=== PATIENT | male | born 1960 | race Caucasian/White ===

== ENCOUNTER 2016-12-13 17:55 | Inpatient (IN) | payer BC, MEDICAID, OTHER ==
[~2016-12-13] VITALS: Ht 174 cm; Wt 109.3 kg
[~2016-12-13 17:55] MED LIST: ASPI81TA31 PO; ATOR80TA PO; CITA20TA19 PO; CLON1TAB PO; CYCL-289 PO; METO-304 PO; RANI300T7 PO; TOPI100T11 PO
[2016-12-13 18:31] LABS: BASOPHILS # (AUTO) 0.1 K/uL (0.0-8.0); BASOPHILS % (AUTO) 0.7 % (0.0-2.0); EOSINOPHILS # (AUTO) 0.1 K/uL (0.0-0.7); EOSINOPHILS % (AUTO) 0.6 % (0.0-7.0); HEMATOCRIT 49.6 % (36.7-47.1); LYMPHOCYTES # (AUTO) 4.6 K/uL (20.0-40.0); LYMPHOCYTES % (AUTO) 29.3 % (20.5-51.5); MEAN CORPUSCULAR HEMOGLOBIN 31.7 uug (23.8-33.4); MEAN CORPUSCULAR HGB CONC 34 g/dL (32.5-36.3); MEAN CORPUSCULAR VOLUME 92.4 fL (73.0-96.2); MONOCYTES # (AUTO) 1.2 K/uL (2.0-10.0); MONOCYTES % (AUTO) 7.7 % (0.0-11.0); NEUTROPHILS # (AUTO) 9.7 K/uL (1.8-8.9); NEUTROPHILS % (AUTO) 61.7 % (38.5-71.5); PLATELET COUNT (AUTO) 223 K/uL (152-348); RED BLOOD CELL COUNT(AUTO) 5.37 MIL/uL (4.06-5.63); RED CELL DISTRIBUTION WIDTH 12.8 % (12.1-16.2); WHITE BLOOD COUNT (AUTO) 15.7 K/uL (3.6-10.2)
[2016-12-13 18:33] LABS: CALCIUM 9.3 mg/dL (8.5-10.1); CREATININE 1.3 mg/dL (0.6-1.3); POTASSIUM 3.8 mmol/L (3.5-5.1)
[2016-12-13] MEDS ORDERED: ESCI20TA PO (18:38)
[2016-12-13] MEDS ORDERED: DEPAKOTE PO (18:38)
[2016-12-13 18:52] LABS: BAND % (MANUAL) 2 % (0-10); LYMPHOCYTES % (MANUAL) 28 % (20-40); MONOCYTES % (MANUAL) 7 % (2-10); NEUTROPHILS % (MANUAL) 63 % (42-75); PLATELET ESTIMATE ADEQUATE
[2016-12-13] MEDS ORDERED: MORPHINE SULFATE 4 MG/1 ML DISP.SYRIN IV ONE (20:15)
[2016-12-13] MEDS ORDERED: IV NORMAL SALINE 1000 ML BAG IV ONE (20:15)
[2016-12-13] MEDS ORDERED: ONDANSETRON IV *ER 4 MG/2 ML VIAL IV ONE (20:15)
[2016-12-13] MEDS ORDERED: ONDANSETRON 4 MG/2 ML VIAL ONE (20:28)
[2016-12-13] MEDS ORDERED: MORPHINE SULFATE 4 MG/1 ML DISP.SYRIN ONE (20:28)
[2016-12-13] MEDS ORDERED: IV NORMAL SALINE 250 ML IV ONE (20:36)
[2016-12-13] MEDS ORDERED: NORMAL SALINE FLUSH 10 ML DISP.SYRIN ONE (20:36)
[2016-12-13] MEDS ORDERED: IOHEXOL 350 100 ML INFUS..BTL ONE (20:36)
--- NOTE | 2016-12-13 21:00 | NUR ---
Call placed to Dr Coughlin, call back pending.
--- NOTE | 2016-12-13 21:36 | NUR ---
Pt. admitted to telemetry , under care of Dr. Coughlin. Dx: Chest Pain Belongs List completed.
[2016-12-13 22:11] VITALS: BP 132/92
--- NOTE | 2016-12-13 22:30 | NUR ---
PLACE A CALL TO DR. DIEHL TO OBTAIN ORDERS, DR. VIVIENNE NICHOLAS TOUR PRODUCTION SUPERVISOR AWAITING FOR RESPONSE.
--- NOTE | 2016-12-13 23:00 | NUR ---
VIVIENNE JOHANSEN RETURNED THE CALL WITH ORDERS. ORDER NOTED AND CARRIED OUT.
[2016-12-13] MEDS: MORPHINE SULFATE 2 MG/1 ML DISP.SYRIN IV PRN (23:40)
[2016-12-13] MEDS ORDERED: MORPHINE SULFATE 2 MG/1 ML DISP.SYRIN ONE (23:49)
[2016-12-14] MEDS ORDERED: ZOLPIDEM 5 MG TABLET PO PRN
[2016-12-14] MEDS ORDERED: CYCLOBENZAPRINE HCL 10 MG TABLET PO PRN
[2016-12-14] MEDS ORDERED: ACETAMINOPHEN 325 MG TABLET PO PRN
[2016-12-14 04:00] VITALS: BP 114/71
--- NOTE | 2016-12-14 04:31 | NUR ---
PATIENT AWAKE PAIN LEVEL AT 4 AT THIS TIME, GIVEN OXYGEN 2LITER NC FOR ASSIST, OXYGEN SAT 94% AT ROOM AIR, PATIENT OXYGEN SAT 96% AT 2LITERS, NO SOB NO CHEST CONT TO MONITOR.
--- NOTE | 2016-12-14 06:29 | NUR ---
PATIENT AWAKE VERBALLY RESPONSIVE, NO SOB NO CHEST PAIN NOTED, CONT TO MONITOR.
[2016-12-14 06:59] LABS: BASOPHILS # (AUTO) 0.1 K/uL (0.0-8.0); BASOPHILS % (AUTO) 0.7 % (0.0-2.0); EOSINOPHILS # (AUTO) 0.2 K/uL (0.0-0.7); EOSINOPHILS % (AUTO) 1.4 % (0.0-7.0); HEMATOCRIT 46.7 % (36.7-47.1); HEMOGLOBIN 16.2 g/dL (12.5-16.3); LYMPHOCYTES # (AUTO) 3.5 K/uL (20.0-40.0); MEAN CORPUSCULAR HGB CONC 35 g/dL (32.5-36.3); MEAN CORPUSCULAR VOLUME 92.6 fL (73.0-96.2); MONOCYTES % (AUTO) 9.5 % (0.0-11.0); NEUTROPHILS # (AUTO) 6.3 K/uL (1.8-8.9); NEUTROPHILS % (AUTO) 56.4 % (38.5-71.5); PLATELET COUNT (AUTO) 196 K/uL (152-348); RED BLOOD CELL COUNT(AUTO) 5.04 MIL/uL (4.06-5.63); RED CELL DISTRIBUTION WIDTH 13.2 % (12.1-16.2); WHITE BLOOD COUNT (AUTO) 11.1 K/uL (3.6-10.2)
[2016-12-14 07:27] LABS: ALBUMIN 3.2 g/dL (3.4-5.0); BILIRUBIN,TOTAL 0.6 mg/dL (0.2-1.0); CALCIUM 8.5 mg/dL (8.5-10.1); CREATININE 1.1 mg/dL (0.6-1.3); POTASSIUM 3.9 mmol/L (3.5-5.1); TOTAL PROTEIN, SERUM 6.4 g/dL (6.4-8.2)
[2016-12-14] MEDS: ASPIRIN EC 81 MG TABLET.DR PO SCH (08:17)
[2016-12-14] MEDS: DIVALPROEX 250 MG TABLET.DR PO SCH ×3 (08:17→17:59)
[2016-12-14] MEDS: MORPHINE SULFATE 2 MG/1 ML DISP.SYRIN IV PRN ×2 (08:19→20:39)
[2016-12-14] MEDS ORDERED: METOPROLOL TARTRATE 50 MG TABLET PO SCH (09:00)
[2016-12-14] MEDS ORDERED: ESCITALOPRAM OXALATE 10 MG TABLET NG SCH (09:00)
[2016-12-14] MEDS ORDERED: CYCLOBENZAPRINE HCL 10 MG TABLET PO SCH (09:00)
[2016-12-14] MEDS: ESCITALOPRAM OXALATE 10 MG TABLET PO SCH (09:00)
[2016-12-14] MEDS: FAMOTIDINE 20 MG TABLET PO SCH (09:45)
[2016-12-14] MEDS: METOPROLOL SUCCINATE XL 50 MG TAB.SR.24H PO SCH (09:46)
[2016-12-14] MEDS ORDERED: REGADENOSON 0.4 MG/5 ML PREFILLED SYR IV ONE (11:45)
[2016-12-14 12:00] VITALS: BP 135/92
[2016-12-14 16:00] VITALS: BP 121/89
--- NOTE | 2016-12-14 18:59 | NUR ---
PATIENT BEEN IN BED RESTING. NO S/S OF DISTRESS NOTED. C/O OF CHEST PAIN DURING THE MORNING. MEDICATED ORDERED. AT THE BEDSIDE. STRESS TEST WAS DONE TODAY DURING THE DAY. IV STILL INTACT. SAFETY AND COMFORT PROVIDED BY STAFF. WILL CONTINUE MONITORING.
--- NOTE | 2016-12-14 19:22 | NUR ---
Report received from MARY Jones
--- NOTE | 2016-12-14 19:40 | NUR ---
Awake during initial rounds, presenting CP in scale of 5/10 , non radiating. Refused pain meds offered at this time. Continue to monitor.
[2016-12-14 20:16] VITALS: BP 119/73
[2016-12-14] MEDS ORDERED: ATORVASTATIN 40 MG TABLET PO SCH (21:00)
[2016-12-14] MEDS ORDERED: CLONAZEPAM 1 MG TABLET PO SCH (21:00)
[2016-12-15 00:06] VITALS: BP 120/75
[2016-12-15 04:00] VITALS: BP 124/79
--- NOTE | 2016-12-15 06:34 | NUR ---
Medicated once for c/o CP with relief. No further complaint presented. Slept well. All needs attended and met. No significant event reported all night. VSS. Continue care as planned.
--- NOTE | 2016-12-15 06:52 | NUR ---
Report given to AM nurse.
--- NOTE | 2016-12-15 07:15 | NUR ---
REPORT RECEIVED.PT REMAINS AWAKE,ALERT,ORIENTED.DENIES CHEST PAIN.SR ON MONITOR.ON ROOM AIR,TOLERATED WELL.NO SOB NOTED.WILL CONTINUE TO MONITOR.
[2016-12-15 08:00] VITALS: BP 139/99
[2016-12-15] MEDS: ESCITALOPRAM OXALATE 10 MG TABLET PO SCH (09:36)
[2016-12-15 09:37] VITALS: BP 139/99
[2016-12-15] MEDS: ASPIRIN EC 81 MG TABLET.DR PO SCH (09:37)
[2016-12-15] MEDS: FAMOTIDINE 20 MG TABLET PO SCH (09:37)
[2016-12-15] MEDS: METOPROLOL SUCCINATE XL 50 MG TAB.SR.24H PO SCH (09:37)
[2016-12-15] MEDS: DIVALPROEX 250 MG TABLET.DR PO SCH (09:37)
--- NOTE | 2016-12-15 10:00 | NUR ---
PT WAS DISCHARGE HOME IN STABLE CONDITION.DISCHARGE INSTRUCTION GIVEN TO PT.PT ACCOMPANY BY HIS .TRANSFERED TO PRIVATE CAR BY WHEELCHAIR.
== END 2016-12-15 10:30 | disposition home or self-care (01) | DRG 207 ==
LOC: ER 17:56 → TELE 21:19
PROVIDERS: ADMIT Internal Medicine; ATTEND Internal Medicine
DX: I31.9 Disease of pericardium, unspecified (principal); I10 Essential (primary) hypertension; I25.2 Old myocardial infarction; E78.5 Hyperlipidemia, unspecified; I25.10 Atherosclerotic heart disease of native coronary artery without angina pectoris; F31.9 Bipolar disorder, unspecified; Z98.61 Coronary angioplasty status; F41.9 Anxiety disorder, unspecified
CPT/HCPCS: 36415; 70030-TC; 71010; 78452; 85025; 85651; 85730; 86140; 93005; 93307; A4663; A9502; J2270; J2405; J2785; J3490; J7050; Q9967

== ENCOUNTER 2017-07-30 12:13 | Inpatient (IN) | payer MEDICAID ==
[~2017-07-30] VITALS: Ht 175.3 cm; Wt 113.4 kg
[~2017-07-30 12:13] MED LIST changes: -CITA20TA19 PO; +DEPAKOTE PO; +ESCI20TA PO; -TOPI100T11 PO
[2017-07-30] MEDS ORDERED: BREX2TAB PO (12:28)
[2017-07-30] MEDS ORDERED: HYDR-3026 PO (12:28)
[2017-07-30 13:03] LABS: BASOPHILS % (AUTO) 0.5 % (0.0-2.0); EOSINOPHILS # (AUTO) 0.2 K/uL (0.0-0.7); EOSINOPHILS % (AUTO) 1.9 % (0.0-7.0); HEMATOCRIT 43.4 % (36.7-47.1); HEMOGLOBIN 14.7 g/dL (12.5-16.3); LYMPHOCYTES # (AUTO) 2.7 K/uL (20.0-40.0); LYMPHOCYTES % (AUTO) 31.4 % (20.5-51.5); MEAN CORPUSCULAR HEMOGLOBIN 31.4 uug (23.8-33.4); MEAN CORPUSCULAR HGB CONC 34 g/dL (32.5-36.3); MEAN CORPUSCULAR VOLUME 92.5 fL (73.0-96.2); MONOCYTES # (AUTO) 0.7 K/uL (2.0-10.0); MONOCYTES % (AUTO) 8.4 % (0.0-11.0); NEUTROPHILS # (AUTO) 4.9 K/uL (1.8-8.9); NEUTROPHILS % (AUTO) 57.8 % (38.5-71.5); PLATELET COUNT (AUTO) 217 K/uL (152-348); RED BLOOD CELL COUNT(AUTO) 4.69 MIL/uL (4.06-5.63); WHITE BLOOD COUNT (AUTO) 8.5 K/uL (3.6-10.2)
[2017-07-30 13:07] LABS: CARBON DIOXIDE 26 mmol/L (21-32); CHLORIDE 107 mmol/L (98-107); CREATININE 1.3 mg/dL (0.6-1.3); GLUCOSE 90 mg/dL (74-106); POTASSIUM 4.6 mmol/L (3.5-5.1); UREA NITROGEN, BLOOD 23 mg/dL (7-18)
--- NOTE | 2017-07-30 13:08 | NUR ---
PT BACK FROM CT, RESTING COMFORTABLY
[2017-07-30 13:12] LABS: ETHANOL < 3 MG/DL (0-0)
[2017-07-30 13:21] LABS: ALANINE AMINOTRANSFERASE 33 U/L (16-63); ALKALINE PHOSPHATASE 82 U/L (50-136); ASPARTATE AMINOTRANSFERASE 26 U/L (15-37); BILIRUBIN,DIRECT 0.1 mg/dL (0.0-0.2); BILIRUBIN,TOTAL 0.4 mg/dL (0.2-1.0); TOTAL PROTEIN, SERUM 6.5 g/dL (6.4-8.2)
[2017-07-30 13:22] LABS: ACETAMINOPHEN < 2.0 ug/mL (10-30)
--- NOTE | 2017-07-30 13:47 | NUR ---
Multiple calls placed to pt's pmd office ( Dr. Santos Gaspar [phone] ), placed on hold for long periods of time multiple times. Office staff stated " Dr. Gaspar is not on staff there ".
--- NOTE | 2017-07-30 14:00 | NUR ---
Per pt to be admitted to tele, Mike Antunez DNP accepting.
--- NOTE | 2017-07-30 14:38 | NUR ---
Pt trans to tele floor, NAD noted.
--- NOTE | 2017-07-30 14:45 | NUR ---
PT ARRIVED CONFUSED, AOX1, STABLE VITAL SIGNS, ON TELE, 20 GAUGE LEFT AC INTACT. PT IS CALM, COOPERATIVE ADMISSION COMPLETED WITH THE HELP OF . PT IS TOO CONFUSED TO ANSWER PASSED HISTORY QUESTIONS FOR ADMISSION. VITALS STABLE AND SKIN INTACT.
[2017-07-30] MEDS ORDERED: hydrOXYzine HCL 25 MG TABLET PO SCH (16:00)
[2017-07-30] MEDS ORDERED: ACETAMINOPHEN 325 MG TABLET PO PRN (16:15)
[2017-07-30] MEDS ORDERED: Z GUARD REMEDY PASTE 57 GM TUBE TOP PRN (16:15)
[2017-07-30] MEDS ORDERED: ONDANSETRON 4 MG/2 ML VIAL IV PRN (16:15)
[2017-07-30] MEDS ORDERED: ENOXAPARIN SODIUM 40 MG/0.4 ML DISP.SYRIN SQ SCH ×2 (16:15→21:00)
--- NOTE | 2017-07-30 17:50 | NUR ---
PT PULLED OUT IV AND IS CONFUSED THINKS HE IS LEAVING. PT RE-ORIENTED TO TIME AND PLACE. PT IS ANXIOUS 10/10, PT TAUGHT BREATHING EXERCISES AND DISTRACTION WITH TV. PT ANXIETY IS 2/10.
[2017-07-30 17:56] VITALS: BP 140/84
[2017-07-30 19:03] LABS: *BILIRUBIN,URIN NEGATIVE (NEGATIVE); *BLOOD, URINE Trace-lysed (NEGATIVE); *CLARITY,URINE CLEAR (CLEAR); *COLOR,URINE YELLOW (YELLOW); *KETONES,URINE NEGATIVE (NEGATIVE); *PROTEIN,URINE NEGATIVE (NEGATIVE); *UROBILINOGEN,URINE 0.2 E.U./dl (NORMAL); LEUKOCYTE ESTERASE ,URINE NEGATIVE (NEGATIVE); NITRITE, URINE NEGATIVE (NEGATIVE); PH,URINE 6.5 (5.0-8.0); UGLUCOSE NEGATIVE (NEGATIVE)
[2017-07-30 19:12] LABS: *AMPHETAMINE, URINE NEGATIVE (NEGATIVE); *BARBITURATE, URINE NEGATIVE (NEGATIVE); *CANNABINOID, URINE POSITIVE (NEGATIVE); *COCCAINE, URINE NEGATIVE (NEGATIVE); *OPIATE, URINE NEGATIVE (NEGATIVE); *PHENCYCLIDINE SCREEN,URINE NEGATIVE (NEGATIVE); BACTERIA,URINE FEW /HPF (NONE SEEN); SQUAMOUS EPITHELIAL CELL,UR FEW /HPF (NONE SEEN); WBC,URINE 0-3 /HPF (0-3)
[2017-07-30 20:00] VITALS: BP 117/63
--- NOTE | 2017-07-30 20:00 | NUR ---
RECEIVED PATIENT AWAKE IN BED WITH FAMILY AT BEDSIDE. PATIENT IS A/O X4 BUT FORGETFUL. PATIENT KEEPS TAKING OFF HEART MONITOR. NEEDS FREQUENT REDIRECTION, BUT WHEN ON TELE, SR. DENIES ANY PAIN OR DISCOMFORT. NO RESP. DISTRESS NOTED. CALL LIGHT IN REACH. ALL NEEDS ATTENDED. WILL CONTINUE TO MONITOR.
[2017-07-30] MEDS ORDERED: ATORVASTATIN 40 MG TABLET PO SCH (21:00)
[2017-07-31] VITALS: BP 133/80
--- NOTE | 2017-07-31 02:00 | NUR ---
PATIENT PULLED OFF TELE MONITOR AND IS REFUSING TO WEAR AT THIS TIME. SON IS PRESENT AT BEDSIDE. WILL CONTINUE TO MONITOR.
[2017-07-31 04:00] VITALS: BP 113/54
--- NOTE | 2017-07-31 06:00 | NUR ---
PATIENT ASLEEP IN BED WITH SON AT BEDSIDE. VSS. ON TELE SR. NO S/S OF PAIN OR DISCOMFORT. NO RESP. DISTRESS NOTED. CALL LIGHT IN REACH. BED ALARM ON. ALL NEEDS ATTENDED. WILL CONTINUE TO MONITOR.
--- NOTE | 2017-07-31 06:28 | NUR ---
PATIENT ASLEEP IN BED. SON AT BEDSIDE. IVF INFUSING WELL TO RIGHT HAND #20 GAUGE. VSS. ON TELE. CALL LIGHT IN REACH. ALL NEEDS ATTENDED. WILL CONTINUE TO MONITOR AND ASSESS.
[2017-07-31 06:53] LABS: BASOPHILS % (AUTO) 0.3 % (0.0-2.0); EOSINOPHILS # (AUTO) 0.2 K/uL (0.0-0.7); EOSINOPHILS % (AUTO) 3.4 % (0.0-7.0); HEMATOCRIT 44.1 % (36.7-47.1); HEMOGLOBIN 14.9 g/dL (12.5-16.3); LYMPHOCYTES # (AUTO) 2.2 K/uL (20.0-40.0); LYMPHOCYTES % (AUTO) 35.8 % (20.5-51.5); MEAN CORPUSCULAR HEMOGLOBIN 31.3 uug (23.8-33.4); MEAN CORPUSCULAR HGB CONC 34 g/dL (32.5-36.3); MEAN CORPUSCULAR VOLUME 92.8 fL (73.0-96.2); MONOCYTES # (AUTO) 0.7 K/uL (2.0-10.0); MONOCYTES % (AUTO) 10.7 % (0.0-11.0); NEUTROPHILS # (AUTO) 3.1 K/uL (1.8-8.9); NEUTROPHILS % (AUTO) 49.8 % (38.5-71.5); PLATELET COUNT (AUTO) 210 K/uL (152-348); RED BLOOD CELL COUNT(AUTO) 4.75 MIL/uL (4.06-5.63); WHITE BLOOD COUNT (AUTO) 6.2 K/uL (3.6-10.2)
[2017-07-31] MEDS ORDERED: IV NS 1000 ML 1,000 ML IV PRN (07:00)
[2017-07-31 07:08] LABS: THYROID STIMULATING HORMONE 2.601 mIU/mL (0.358-3.740)
[2017-07-31 07:11] LABS: BILIRUBIN,TOTAL 0.5 mg/dL (0.2-1.0); CREATININE 1.2 mg/dL (0.6-1.3); MAGNESIUM 1.8 mg/dL (1.8-2.4); PHOSPHOROUS 3.1 mg/dL (2.5-4.9); POTASSIUM 4.1 mmol/L (3.5-5.1); TOTAL PROTEIN, SERUM 6.2 g/dL (6.4-8.2)
[2017-07-31] MEDS ORDERED: ESCITALOPRAM OXALATE 10 MG TABLET PO SCH (09:00)
[2017-07-31] MEDS ORDERED: METOPROLOL SUCCINATE XL 50 MG TAB.SR.24H PO SCH (09:00)
[2017-07-31] MEDS ORDERED: ASPIRIN 81 MG TAB.CHEW PO SCH (09:00)
[2017-07-31 11:42] VITALS: BP 116/88
[2017-07-31] MEDS ORDERED: CLON1TAB PO (11:52)
[2017-07-31] MEDS ORDERED: CYAN-10 IM (11:52)
[2017-07-31] MEDS ORDERED: CYANOCOBALAMIN 1000 MCG/ML VIAL IM ONE (12:00)
--- NOTE | 2017-07-31 14:55 | NUR ---
discharge instructions given to patient and . reforestation worker involved re: set up on VIT B12 IM shot. Pt is in no acute distress. Prescription given to and patient. Pt more awake alert and oriented and from wifes perspective pt's orientation is back to his baseline. Pharmacist spoke and educated and patient re new medication. Pt is to f/u with PMD within 1 week. IV d/c. No sob upon discharge.
[2017-08-01 11:48] LABS: HEPATITIS B SURFACE AG Negative (Negative)
[2017-08-02 07:06] LABS: HEPATITIS Be ANTIGEN Negative (Negative)
[2017-08-04 17:08] LABS: *VITAMIN D 25-OH VIT D 18 ng/mL (.); *VITAMIN D 25-OH, D2 <1.0 ng/mL (.); *VITAMIN D 25-OH, D3 17 ng/mL (.)
== END 2017-07-31 14:47 | disposition home or self-care (01) | DRG 52 ==
LOC: ER 12:13 → TELE 15:23 → MED 07-31 11:27
PROVIDERS: ADMIT Nurse Practitioner Acute Care; ATTEND Nurse Practitioner Acute Care
DX: G92 Toxic encephalopathy (principal); N17.0 Acute kidney failure with tubular necrosis; E86.0 Dehydration; T50.905A Adverse effect of unspecified drugs, medicaments and biological substances, initial encounter; Y92.009 Unspecified place in unspecified non-institutional (private) residence as the place of occurrence of the external cause; I25.2 Old myocardial infarction; I25.10 Atherosclerotic heart disease of native coronary artery without angina pectoris; Z95.5 Presence of coronary angioplasty implant and graft; Z82.49 Family history of ischemic heart disease and other diseases of the circulatory system; E78.5 Hyperlipidemia, unspecified; E66.01 Morbid (severe) obesity due to excess calories; F32.9 Major depressive disorder, single episode, unspecified; F41.9 Anxiety disorder, unspecified; F23 Brief psychotic disorder; I10 Essential (primary) hypertension; F12.90 Cannabis use, unspecified, uncomplicated; E53.8 Deficiency of other specified B group vitamins; Z79.899 Other long term (current) drug therapy; Z79.82 Long term (current) use of aspirin; Z68.36 Body mass index [BMI] 36.0-36.9, adult
CPT/HCPCS: 36415; 70030-TC; 70450; 71010; 80307; 82533; 83605; 83735; 84100; 84443; 85025; 86592; 86803; 87040; 87340; 87350; 87806; 93005; A4663; G0480; G0480-TC; J1650; J3420; J7030

== ENCOUNTER 2018-12-24 16:19 | Emergency (ER) | payer MEDICAID ==
[~2018-12-24] VITALS: Ht 175.3 cm; Wt 95.3 kg
[~2018-12-24 16:19] MED LIST changes: +CYAN-10 IM; -CYCL-289 PO; -DEPAKOTE PO; -METO-304 PO; +METO-357 PO
--- NOTE | 2018-12-24 16:32 | NUR ---
PT WAS EVALUATED BY DR SANTOS. PT IS IN ROOM #2A.
[2018-12-24 16:44] LABS: BASOPHILS % (AUTO) 0.5 % (0.0-2.0); EOSINOPHILS # (AUTO) 0.2 K/uL (0.0-0.7); EOSINOPHILS % (AUTO) 1.9 % (0.0-7.0); HEMATOCRIT 46.6 % (36.7-47.1); LYMPHOCYTES # (AUTO) 4.1 K/uL (20.0-40.0); LYMPHOCYTES % (AUTO) 43.5 % (20.5-51.5); MEAN CORPUSCULAR HGB CONC 34 g/dL (32.5-36.3); MONOCYTES # (AUTO) 0.8 K/uL (2.0-10.0); MONOCYTES % (AUTO) 8.7 % (0.0-11.0); NEUTROPHILS # (AUTO) 4.3 K/uL (1.8-8.9); NEUTROPHILS % (AUTO) 45.4 % (38.5-71.5); PLATELET COUNT (AUTO) 218 K/uL (152-348); RED BLOOD CELL COUNT(AUTO) 5.01 MIL/uL (4.06-5.63); WHITE BLOOD COUNT (AUTO) 9.5 K/uL (3.6-10.2)
[2018-12-24] MEDS ORDERED: LORAZEPAM 2 MG/1 ML VIAL ONE (16:46)
[2018-12-24] MEDS ORDERED: KETOROLAC TROMETHAMINE 30 MG INJ ONE (16:46)
[2018-12-24] MEDS: LORAZEPAM 2 MG/1 ML VIAL IV ONE (16:46)
[2018-12-24] MEDS: KETOROLAC TROMETHAMINE 30 MG INJ IVP ONE (16:47)
[2018-12-24] MEDS ORDERED: RAMI2.5C2 PO (16:50)
[2018-12-24] MEDS ORDERED: CLON1TAB PO (16:50)
[2018-12-24] MEDS ORDERED: NITR0.4T SL (16:50)
[2018-12-24] MEDS ORDERED: FLEXERIL PO (16:50)
[2018-12-24] MEDS ORDERED: HYDR25CA PO (16:50)
[2018-12-24] MEDS ORDERED: CELE-85 PO (16:50)
[2018-12-24] MEDS ORDERED: LAMO200T PO (16:50)
[2018-12-24 16:52] LABS: CREATININE 1.3 mg/dL (0.6-1.3); POTASSIUM 4.3 mmol/L (3.5-5.1)
[2018-12-24 16:58] LABS: BILIRUBIN,DIRECT 0.1 mg/dL (0.0-0.2); BILIRUBIN,TOTAL 0.3 mg/dL (0.2-1.0); TOTAL PROTEIN, SERUM 6.9 g/dL (6.4-8.2)
[2018-12-24] MEDS: HYDROMORPHONE 1 MG/1 ML DISP.SYRIN IV ONE (18:14)
[2018-12-24] MEDS ORDERED: IOHEXOL 350 100 ML INFUS..BTL ONE (18:15)
[2018-12-24] MEDS ORDERED: NORMAL SALINE FLUSH 10 ML DISP.SYRIN ONE (18:15)
[2018-12-24] MEDS ORDERED: SWABABLE VALVE TRANSFER SET EA MC ONE (18:15)
[2018-12-24] MEDS ORDERED: HYDROMORPHONE 1 MG/1 ML DISP.SYRIN ONE (18:15)
[2018-12-24] MEDS ORDERED: IV NORMAL SALINE 250 ML IV ONE (18:15)
--- NOTE | 2018-12-24 19:12 | NUR ---
Checked on patient, patient in bed on phone. Patient has pain, but tolerable. NAD, VSS.
--- NOTE | 2018-12-24 20:31 | NUR ---
Patient discharged to home in stable conditon. Written and verbal after care instructions given. Patient verbalizes understanding of instructions. Patient ambulated with steady gait.
[2018-12-24 20:33] VITALS: BP 120/70
== END 2018-12-24 20:34 | disposition home or self-care (01) ==
LOC: ER 16:21
DX: R07.89 Other chest pain (principal); R11.2 Nausea with vomiting, unspecified; I25.2 Old myocardial infarction; Z79.899 Other long term (current) drug therapy; Z79.82 Long term (current) use of aspirin
CPT/HCPCS: 36415; 71045; 71275; 80048; 80076; 84484 ×2; 85025; 85379; 93005 ×2; 96374; 96375; 99284; J1170; J1885; J2060; Q9967; 70030-TC; A4663; J3490; J7050

== ENCOUNTER 2020-03-02 12:59 | Emergency (ER) | payer MEDICAID ==
[~2020-03-02] VITALS: Ht 175.3 cm; Wt 90.7 kg
[~2020-03-02 12:59] MED LIST changes: +CELE-85 PO; -CYAN-10 IM; +FLEXERIL PO; +HYDR25CA PO; +LAMO200T10 PO; +NITR0.4T SL; +RAMI2.5C2 PO
--- NOTE | 2020-03-02 13:14 | NUR ---
DR Ruiz at the bedside for MSE.
[2020-03-02] MEDS ORDERED: ONDANSETRON 4 MG/2 ML VIAL ONE (13:23)
[2020-03-02] MEDS ORDERED: MORPHINE SULFATE 4 MG/1 ML DISP.SYRIN ONE (13:23)
[2020-03-02] MEDS ORDERED: ONDANSETRON 4 MG/2 ML VIAL IV ONE (13:30)
[2020-03-02] MEDS ORDERED: MORPHINE SULFATE 2 MG/1 ML DISP.SYRIN IV ONE (13:30)
[2020-03-02 13:36] LABS: BASOPHILS # (AUTO) 0.1 K/uL (0.0-8.0); BASOPHILS % (AUTO) 0.5 % (0.0-2.0); EOSINOPHILS # (AUTO) 0.2 K/uL (0.0-0.7); EOSINOPHILS % (AUTO) 1.3 % (0.0-7.0); HEMATOCRIT 48.9 % (36.7-47.1); HEMOGLOBIN 16.7 g/dL (12.5-16.3); LYMPHOCYTES # (AUTO) 2.7 K/uL (20.0-40.0); LYMPHOCYTES % (AUTO) 20.8 % (20.5-51.5); MEAN CORPUSCULAR HEMOGLOBIN 33.5 uug (23.8-33.4); MEAN CORPUSCULAR HGB CONC 34 g/dL (32.5-36.3); MEAN CORPUSCULAR VOLUME 98.3 fL (73.0-96.2); MONOCYTES # (AUTO) 0.9 K/uL (2.0-10.0); NEUTROPHILS # (AUTO) 9.2 K/uL (1.8-8.9); NEUTROPHILS % (AUTO) 70.4 % (38.5-71.5); PLATELET COUNT (AUTO) 226 K/uL (152-348); RED BLOOD CELL COUNT(AUTO) 4.98 MIL/uL (4.06-5.63); WHITE BLOOD COUNT (AUTO) 13.1 K/uL (3.6-10.2)
[2020-03-02 13:40] LABS: CREATININE 1.4 mg/dL (0.6-1.3); POTASSIUM 5.1 mmol/L (3.5-5.1)
[2020-03-02 13:45] LABS: BILIRUBIN,DIRECT 0.1 mg/dL (0.0-0.2); BILIRUBIN,TOTAL 0.4 mg/dL (0.2-1.0); TOTAL PROTEIN, SERUM 7.2 g/dL (6.4-8.2)
[2020-03-02 14:03] LABS: *BLOOD, URINE 3+ (NEGATIVE); *CLARITY,URINE TURBID (CLEAR); *COLOR,URINE RED (YELLOW); *KETONES,URINE 1+ (NEGATIVE); LEUKOCYTE ESTERASE ,URINE 3+ (NEGATIVE); NITRITE, URINE NEGATIVE (NEGATIVE); PH,URINE 8.5 (5.0-8.0); UGLUCOSE TRACE (NEGATIVE)
[2020-03-02 14:06] LABS: *BILIRUBIN,URIN 3+ (NEGATIVE)
[2020-03-02] MEDS ORDERED: PHENAZOPYRIDINE HCL 100 MG TABLET PO ONE (14:45)
[2020-03-02] MEDS ORDERED: CEFTRIAXONE 1 G in IV DEXTROSE 5% 50 ML IV ONE (14:45)
[2020-03-02] MEDS ORDERED: CEFTRIAXONE 1 G VIAL ONE (14:49)
[2020-03-02] MEDS ORDERED: PHENAZOPYRIDINE HCL 100 MG TABLET ONE (14:49)
[2020-03-02 15:21] VITALS: BP 117/82
--- NOTE | 2020-03-02 15:27 | NUR ---
Patient discharged to home in stable condition. Written and verbal after care instructions given. Patient verbalizes understanding of instructions. Stressed follow up or return to ER for worsening s/s.
[2020-03-02 15:30] LABS: RBC,URINE TNTC /HPF (0-3)
[2020-03-02 15:31] LABS: BACTERIA,URINE FEW /HPF (NONE SEEN); SQUAMOUS EPITHELIAL CELL,UR FEW /HPF (NONE SEEN); WBC,URINE TNTC /HPF (0-3)
== END 2020-03-02 15:28 | disposition home or self-care (01) ==
LOC: ER 12:59
DX: N30.01 Acute cystitis with hematuria (principal); M84.48XA Pathological fracture, other site, initial encounter for fracture; K76.89 Other specified diseases of liver; I25.2 Old myocardial infarction; Z95.5 Presence of coronary angioplasty implant and graft; Z87.442 Personal history of urinary calculi; Z79.82 Long term (current) use of aspirin
CPT/HCPCS: 36415; 74176; 80048; 80076; 81001; 85025; 85730; 87086; 96365; 96375; 99284; J0696; J2270; J2405; J3490

== ENCOUNTER 2020-03-21 15:38 | Emergency (ER) | payer MEDICAID ==
[~2020-03-21] VITALS: Ht 175.3 cm; Wt 90.7 kg
--- NOTE | 2020-03-21 15:53 | NUR ---
DR Escobedo seen and examined the pt.
[2020-03-21] MEDS ORDERED: LIDOCAINE VISCUS 2% 15 ML UDC MM ONE (16:00)
[2020-03-21] MEDS ORDERED: ONDANSETRON 4 MG/2 ML VIAL IV ONE ×2 (16:00→16:45)
[2020-03-21] MEDS ORDERED: FAMOTIDINE. 20 MG/2 ML VIAL IV ONE ×2 (16:00→16:11)
[2020-03-21] MEDS ORDERED: MAG HYDROX/AL HYDROX/SIMETH 30 ML LIQUID UDC PO ONE (16:00)
[2020-03-21] MEDS ORDERED: LIDOCAINE VISCUS 2% 15 ML UDC ONE (16:11)
[2020-03-21] MEDS ORDERED: MAG HYDROX/AL HYDROX/SIMETH 30 ML LIQUID UDC ONE (16:11)
[2020-03-21] MEDS ORDERED: ONDANSETRON 4 MG/2 ML VIAL ONE ×2 (16:11→16:44)
[2020-03-21 16:14] LABS: BASOPHILS # (AUTO) 0.1 K/uL (0.0-8.0); BASOPHILS % (AUTO) 0.6 % (0.0-2.0); EOSINOPHILS # (AUTO) 0.1 K/uL (0.0-0.7); EOSINOPHILS % (AUTO) 1.6 % (0.0-7.0); HEMATOCRIT 45.5 % (36.7-47.1); HEMOGLOBIN 15.3 g/dL (12.5-16.3); LYMPHOCYTES # (AUTO) 2.4 K/uL (20.0-40.0); LYMPHOCYTES % (AUTO) 28.8 % (20.5-51.5); MEAN CORPUSCULAR HGB CONC 34 g/dL (32.5-36.3); MONOCYTES # (AUTO) 0.7 K/uL (2.0-10.0); MONOCYTES % (AUTO) 8.1 % (0.0-11.0); NEUTROPHILS # (AUTO) 5.1 K/uL (1.8-8.9); NEUTROPHILS % (AUTO) 60.9 % (38.5-71.5); PLATELET COUNT (AUTO) 252 K/uL (152-348); RED BLOOD CELL COUNT(AUTO) 4.64 MIL/uL (4.06-5.63); WHITE BLOOD COUNT (AUTO) 8.4 K/uL (3.6-10.2)
[2020-03-21 16:22] LABS: CREATININE 1.3 mg/dL (0.6-1.3); POTASSIUM 4.2 mmol/L (3.5-5.1)
[2020-03-21 16:27] LABS: BILIRUBIN,DIRECT 0.1 mg/dL (0.0-0.2); BILIRUBIN,TOTAL 0.4 mg/dL (0.2-1.0)
[2020-03-21] MEDS ORDERED: IV NORMAL SALINE 500 ML BAG IV ONE (16:30)
--- NOTE | 2020-03-21 17:22 | NUR ---
Pt back from CT, resting in bed.
[2020-03-21] MEDS ORDERED: SUCRALFATE 1 G/10 ML LIQUID UDC PO STA (17:31)
[2020-03-21] MEDS ORDERED: SUCRALFATE 1 G/10 ML LIQUID UDC ONE (17:55)
[2020-03-21 17:57] VITALS: BP 110/77
== END 2020-03-21 17:59 | disposition home or self-care (01) ==
LOC: ER 15:38
DX: K29.70 Gastritis, unspecified, without bleeding (principal); I25.2 Old myocardial infarction; Z95.5 Presence of coronary angioplasty implant and graft; G89.29 Other chronic pain; M54.9 Dorsalgia, unspecified; Z79.82 Long term (current) use of aspirin; Z79.899 Other long term (current) drug therapy
CPT/HCPCS: 36415; 71045; 74176; 76700; 80048; 80076; 83690; 84484; 85025; 93005; 96361; 96374; 96375; 96376; 99285; J2405 ×2; J3490; 70030-TC; A4663; J7030

== ENCOUNTER 2021-01-06 11:37 | Emergency (ER) | payer BC, MEDICAID ==
[~2021-01-06] VITALS: Ht 175.3 cm; Wt 90.7 kg
[~2021-01-06 11:37] MED LIST changes: -RAMI2.5C2 PO; +RAMI2.5C55 PO
[2021-01-06] MEDS ORDERED: LAMO200T2 PO (11:48)
[2021-01-06] MEDS ORDERED: KETOROLAC TROMETHAMINE 30 MG INJ ONE (12:40)
[2021-01-06] MEDS ORDERED: KETOROLAC TROMETHAMINE 30 MG INJ IM ONE (12:45)
[2021-01-06] MEDS ORDERED: HYDR-4209 PO (12:57)
[2021-01-06] MEDS ORDERED: IBUP-1958 PO (12:57)
== END 2021-01-06 13:09 | disposition home or self-care (01) ==
LOC: ER 11:38
DX: S62.305A Unspecified fracture of fourth metacarpal bone, left hand, initial encounter for closed fracture (principal); S20.211A Contusion of right front wall of thorax, initial encounter; W01.0XXA Fall on same level from slipping, tripping and stumbling without subsequent striking against object, initial encounter; Y93.E9 Activity, other interior property and clothing maintenance; Y92.014 Private driveway to single-family (private) house as the place of occurrence of the external cause; Y99.8 Other external cause status; S00.81XA Abrasion of other part of head, initial encounter
CPT/HCPCS: 29125; 71101; 73110; 73130; 96372; 99284; J1885; A4663

== ENCOUNTER 2021-05-28 19:30 | Emergency (ER) | payer BC, OTHER ==
[~2021-05-28] VITALS: Ht 172.7 cm; Wt 83.9 kg
[~2021-05-28 19:30] MED LIST changes: -CELE-85 PO; +HYDR-4209 PO; -HYDR25CA PO; +IBUP-1958 PO; +LAMO200T2 PO; -RANI300T7 PO
--- NOTE | 2021-05-28 19:52 | NUR ---
Dr. Moreno at bedside for MSE.
--- NOTE | 2021-05-28 19:55 | NUR ---
Xray at bedside.
[2021-05-28] MEDS ORDERED: OXYCODONE/APAP 5-325 MG TABLET PO ONE (20:00)
[2021-05-28] MEDS ORDERED: OXYCODONE/APAP 5-325 MG TABLET ONE (20:04)
[2021-05-28] MEDS ORDERED: OXYC-128 PO (20:49)
[2021-05-28 20:54] VITALS: BP 163/93
--- NOTE | 2021-05-28 20:54 | NUR ---
Patient discharged to home in stable condition. Written and verbal after care instructions given. Patient verbalizes understanding of instructions. Stressed follow up or return to ER for worsening s/s. Patient out of ER with steady gait, no acute signs of distress, VSS, all belongings taken.
== END 2021-05-28 20:54 | disposition home or self-care (01) ==
LOC: ER 19:31
DX: S46.912A Strain of unspecified muscle, fascia and tendon at shoulder and upper arm level, left arm, initial encounter (principal); W01.0XXA Fall on same level from slipping, tripping and stumbling without subsequent striking against object, initial encounter; Y92.89 Other specified places as the place of occurrence of the external cause; I25.2 Old myocardial infarction; Z95.5 Presence of coronary angioplasty implant and graft; Z96.641 Presence of right artificial hip joint; R03.0 Elevated blood-pressure reading, without diagnosis of hypertension
CPT/HCPCS: 73030; A4663

== ENCOUNTER 2022-01-18 21:43 | Emergency (ER) | payer BC, MEDICAID ==
[~2022-01-18 21:43] MED LIST changes: +OXYC-128 PO
--- NOTE | 2022-01-18 22:10 | NUR ---
Patient was called to be triaged but was not present in the waiting room or outside of ER.
--- NOTE | 2022-01-18 22:54 | NUR ---
Patient was called to be triaged but was not present in the waiting room or outside of ER. PATIENT WAS NOT TRIAGED OR SEEN BY ERMD.
== END 2022-01-18 22:55 | disposition left against medical advice (07) ==
LOC: ER 22:13
DX: Z53.21 Procedure and treatment not carried out due to patient leaving prior to being seen by health care provider (principal)

== ENCOUNTER 2022-04-01 21:25 | Emergency (ER) | payer BC, OTHER ==
[~2022-04-01] VITALS: Ht 175.3 cm; Wt 83.9 kg
[2022-04-01] MEDS ORDERED: PROCHLORPERAZINE EDISYLATE 10 MG/2 ML VIAL ONE (21:59)
[2022-04-01] MEDS ORDERED: PROCHLORPERAZINE EDISYLATE 10 MG/2 ML VIAL IV ONE (22:00)
[2022-04-01] MEDS ORDERED: IV NORMAL SALINE 1000 ML BAG IV ONE (22:00)
[2022-04-01 22:08] LABS: HEMATOCRIT 49.4 % (36.7-47.1); MEAN CORPUSCULAR HEMOGLOBIN 32.3 uug (23.8-33.4); PLATELET COUNT (AUTO) 283 K/uL (152-348)
[2022-04-01 22:16] LABS: CARBON DIOXIDE 23 mmol/L (21-32); CHLORIDE 102 mmol/L (98-107); CREATININE 1.5 mg/dL (0.6-1.3); GLUCOSE 111 mg/dL (74-106); POTASSIUM 4.3 mmol/L (3.5-5.1); UREA NITROGEN, BLOOD 19 mg/dL (7-18)
[2022-04-01 22:33] LABS: ALANINE AMINOTRANSFERASE 19 U/L (16-63); ALKALINE PHOSPHATASE 87 U/L (50-136); ASPARTATE AMINOTRANSFERASE 20 U/L (15-37); BILIRUBIN,DIRECT 0.2 mg/dL (0.0-0.2); BILIRUBIN,TOTAL 0.5 mg/dL (0.2-1.0); LIPASE 71 U/L (73-393); TOTAL PROTEIN, SERUM 7.9 g/dL (6.4-8.2)
[2022-04-01] MEDS ORDERED: IV NS 1000 ML 1,000 ML IV ONE (22:45)
[2022-04-01] MEDS ORDERED: MAGNESIUM SULFATE/D5W 300 ML ONE (23:07)
[2022-04-01] MEDS: MAGNESIUM SULFATE/D5W 100 ML IV SCH ×2 (23:10→23:54)
[2022-04-01] MEDS ORDERED: OXYC-128 PO (23:12)
[2022-04-01] MEDS ORDERED: OMEP20CA15 PO (23:12)
[2022-04-01] MEDS ORDERED: PROC10TA29 PO (23:12)
[2022-04-01] MEDS ORDERED: METR500T PO (23:12)
[2022-04-01] MEDS ORDERED: TETR-66 PO (23:12)
[2022-04-01] MEDS ORDERED: BISM262T27 PO (23:12)
[2022-04-01] MEDS ORDERED: HYDROMORPHONE 1 MG/1 ML DISP.SYRIN ONE (23:23)
[2022-04-01] MEDS ORDERED: HYDROMORPHONE 1 MG/1 ML DISP.SYRIN IV ONE (23:30)
[2022-04-02] MEDS: MAGNESIUM SULFATE/D5W 100 ML IV SCH (00:29)
--- NOTE | 2022-04-02 00:30 | NUR ---
Patient states "I feel alot better now."
[2022-04-02 00:37] LABS: *BILIRUBIN,URIN 1+ (NEGATIVE); *BLOOD, URINE 2+ (NEGATIVE); *CLARITY,URINE CLEAR (CLEAR); *COLOR,URINE YELLOW (YELLOW); *KETONES,URINE 3+ (NEGATIVE); *UROBILINOGEN,URINE 0.2 E.U./dl (NORMAL); LEUKOCYTE ESTERASE ,URINE NEGATIVE (NEGATIVE); NITRITE, URINE NEGATIVE (NEGATIVE); PH,URINE 6.5 (5.0-8.0); UGLUCOSE NEGATIVE (NEGATIVE)
[2022-04-02 01:02] LABS: BACTERIA,URINE NONE SEEN /HPF (NONE SEEN); RBC,URINE TNTC /HPF (0-3); SQUAMOUS EPITHELIAL CELL,UR MODERATE /HPF (NONE SEEN)
--- NOTE | 2022-04-02 01:08 | NUR ---
IV removed. Catheter intact and site benign. Pressure and 4x4 gauze applied to site. No bleeding noted.
[2022-04-02 01:12] VITALS: BP 142/77
--- NOTE | 2022-04-02 01:12 | NUR ---
Patient discharged to home in stable condition with taking patient home. Written and verbal after care instructions given. Patient verbalizes understanding of instructions. Stressed follow up or return to ER for worsening s/s.
== END 2022-04-02 01:13 | disposition home or self-care (01) ==
LOC: ER 21:30
DX: K29.70 Gastritis, unspecified, without bleeding (principal); E83.42 Hypomagnesemia; I25.2 Old myocardial infarction; Z96.641 Presence of right artificial hip joint; Z95.5 Presence of coronary angioplasty implant and graft; Z79.82 Long term (current) use of aspirin; Z79.899 Other long term (current) drug therapy; G93.40 Encephalopathy, unspecified
CPT/HCPCS: 99284; 96365; 96375; 96361; 80076; 80048; 81001; 83690; 83735; 85025; 84484; 36415 ×2; 93005; 83605 ×2; 86677 ×2; J3475; J0780; J1170; J7040 ×2; A4663

== ENCOUNTER 2022-04-25 16:01 | Emergency (ER) | payer BC, OTHER ==
[~2022-04-25] VITALS: Ht 175.3 cm; Wt 83.9 kg
[~2022-04-25 16:01] MED LIST changes: +BISM262T27 PO; +METR500T PO; +OMEP20CA15 PO; +PROC10TA29 PO; +TETR-66 PO
[2022-04-25] MEDS ORDERED: FAMOTIDINE 20 MG TABLET ONE (16:29)
[2022-04-25] MEDS ORDERED: HALOPERIDOL LACTATE 5 MG/1 ML VIAL ONE (16:29)
[2022-04-25] MEDS ORDERED: MAG HYDROX/AL HYDROX/SIMETH 30 ML LIQUID UDC ONE (16:29)
[2022-04-25] MEDS ORDERED: ONDANSETRON 4 MG/2 ML VIAL ONE (16:29)
[2022-04-25] MEDS ORDERED: ONDANSETRON 4 MG/2 ML VIAL IV ONE (16:30)
[2022-04-25] MEDS ORDERED: FAMOTIDINE 20 MG TABLET PO ONE (16:30)
[2022-04-25] MEDS ORDERED: MAG HYDROX/AL HYDROX/SIMETH 30 ML LIQUID UDC PO ONE (16:30)
[2022-04-25] MEDS ORDERED: IV NORMAL SALINE 500 ML BAG IV ONE ×2 (16:30→18:30)
[2022-04-25] MEDS ORDERED: HALOPERIDOL LACTATE 5 MG/1 ML VIAL IV ONE (16:30)
--- NOTE | 2022-04-25 16:32 | NUR ---
Patient came in c/o chest pain. 12 lead EKG done immediately. Placed on a monitor.
--- NOTE | 2022-04-25 16:43 | NUR ---
Patient states he feels "much better" now. Family at bedside.
[2022-04-25] MEDS ORDERED: METOCLOPRAMIDE HCL 10 MG/2 ML VIAL ONE (16:59)
[2022-04-25 17:00] LABS: HEMATOCRIT 28.8 % (36.7-47.1); MEAN CORPUSCULAR HEMOGLOBIN 31.7 uug (23.8-33.4); MEAN CORPUSCULAR VOLUME 95.9 fL (73.0-96.2); PLATELET COUNT (AUTO) 528 K/uL (152-348)
[2022-04-25] MEDS ORDERED: LORAZEPAM 2 MG/1 ML VIAL IV ONE (17:00)
[2022-04-25] MEDS ORDERED: LORAZEPAM 2 MG/1 ML VIAL ONE (17:00)
[2022-04-25] MEDS ORDERED: METOCLOPRAMIDE HCL 10 MG/2 ML VIAL IV ONE (17:00)
[2022-04-25 17:24] LABS: CREATININE 1.1 mg/dL (0.6-1.3); POTASSIUM 3.3 mmol/L (3.5-5.1)
[2022-04-25 17:37] LABS: BILIRUBIN,TOTAL 0.4 mg/dL (0.2-1.0); TOTAL PROTEIN, SERUM 6.7 g/dL (6.4-8.2)
[2022-04-25] MEDS ORDERED: diphenhydrAMINE 50 MG/1 ML VIAL ONE (17:39)
[2022-04-25] MEDS ORDERED: OXYCODONE/APAP 5-325 MG TABLET ONE (17:39)
[2022-04-25] MEDS ORDERED: PANTOPRAZOLE SODIUM 40 MG VIAL ONE (17:39)
[2022-04-25] MEDS ORDERED: PROCHLORPERAZINE EDISYLATE 10 MG/2 ML VIAL ONE (17:40)
[2022-04-25] MEDS ORDERED: PROCHLORPERAZINE EDISYLATE 10 MG/2 ML VIAL IV ONE (17:45)
[2022-04-25] MEDS ORDERED: diphenhydrAMINE 50 MG/1 ML VIAL IV ONE (17:45)
[2022-04-25] MEDS ORDERED: OXYCODONE/APAP 5-325 MG TABLET PO ONE (17:45)
[2022-04-25] MEDS ORDERED: PANTOPRAZOLE SODIUM IV 40 MG in IV DEXTROSE 5% 100 ML IV ONE (17:45)
[2022-04-25 17:51] LABS: HEMATOCRIT 30.9 % (36.7-47.1); MEAN CORPUSCULAR HEMOGLOBIN 31.7 uug (23.8-33.4); MEAN CORPUSCULAR VOLUME 95.7 fL (73.0-96.2); PLATELET COUNT (AUTO) 558 K/uL (152-348)
[2022-04-25] MEDS ORDERED: METO-295 PO (18:30)
--- NOTE | 2022-04-25 18:55 | NUR ---
AMBULATED TO BR AND WAS ABLE TO VOID URINE. STATES HE WANTS TO GO HOME AFTER IV FLUID BAG IS IN BECAUSE HE FEELS BETTER, AND IS ABLE TO DRINK APPLE JUICE WITHOUT NAUSEA NOW
--- NOTE | 2022-04-25 19:01 | NUR ---
HAND OFF REPORT GIVEN TO LORRI HERNANDEZ
[2022-04-25 19:17] VITALS: BP 130/71
== END 2022-04-25 19:18 | disposition home or self-care (01) ==
LOC: ER 16:03
DX: R07.9 Chest pain, unspecified (principal); R10.9 Unspecified abdominal pain; R11.10 Vomiting, unspecified; D72.829 Elevated white blood cell count, unspecified; K21.9 Gastro-esophageal reflux disease without esophagitis; Z96.641 Presence of right artificial hip joint; Z87.440 Personal history of urinary (tract) infections; Z79.82 Long term (current) use of aspirin; Z79.899 Other long term (current) drug therapy; F32.A Depression, unspecified; I25.2 Old myocardial infarction; Z95.5 Presence of coronary angioplasty implant and graft; S42.302D Unspecified fracture of shaft of humerus, left arm, subsequent encounter for fracture with routine healing; X58.XXXD Exposure to other specified factors, subsequent encounter; Z87.11 Personal history of peptic ulcer disease; F41.9 Anxiety disorder, unspecified
CPT/HCPCS: 99285; 96375; 74176; 96374; 71045; 80053; 83880; 83690; 85025 ×2; 84484 ×2; 36415; J1200; J1630; J2060; J2765; J2405; C9113 ×2; J0780; J7040 ×2; A4663

== ENCOUNTER 2022-05-26 20:31 | Inpatient (IN) | payer BC, OTHER ==
[~2022-05-26] VITALS: Ht 175.3 cm; Wt 83.9 kg
[~2022-05-26 20:31] MED LIST changes: -HYDR-4209 PO; +METO-295 PO; -TETR-66 PO
--- NOTE | 2022-05-26 20:45 | NUR ---
Dr. Upton at pt bedside. Jeny/Romeo
[2022-05-26] MEDS ORDERED: IV NORMAL SALINE 1000 ML BAG IV ONE ×2 (21:00→23:00)
[2022-05-26] MEDS ORDERED: PIPERACILLIN SODIUM/TAZOBACTAM 3.375 G in IV DEXTROSE 5% 50 ML IV ONE (21:00)
[2022-05-26] MEDS ORDERED: VANCOMYCIN IV 1,000 MG in IV DEXTROSE 5% 250 ML IV ONE (21:00)
[2022-05-26] MEDS ORDERED: LIDOCAINE 2% (GLYDO= UROJET) 10 ML JELLY MM ONE ×2 (21:11→21:15)
[2022-05-26 21:25] LABS: HEMATOCRIT 25.4 % (36.7-47.1); MEAN CORPUSCULAR VOLUME 87.2 fL (73.0-96.2); PLATELET COUNT (AUTO) 449 K/uL (152-348)
[2022-05-26 21:27] LABS: CARBON DIOXIDE 29 mmol/L (21-32); CHLORIDE 99 mmol/L (98-107); CREATININE 1.2 mg/dL (0.6-1.3); GLUCOSE 104 mg/dL (74-106); POTASSIUM 3.6 mmol/L (3.5-5.1); UREA NITROGEN, BLOOD 19 mg/dL (7-18)
[2022-05-26] MEDS ORDERED: PIPERACILLIN/TAZOBACTAM/D5W 50 ML IV ONE (21:30)
[2022-05-26 21:37] LABS: ETHANOL < 3 MG/DL (0-0)
[2022-05-26 21:39] LABS: THYROID STIMULATING HORMONE 2.157 mIU/mL (0.358-3.740)
[2022-05-26 21:41] LABS: ALANINE AMINOTRANSFERASE 10 U/L (16-63); ALKALINE PHOSPHATASE 89 U/L (50-136); ASPARTATE AMINOTRANSFERASE 7 U/L (15-37); BILIRUBIN,DIRECT < 0.1 mg/dL (0.0-0.2); BILIRUBIN,TOTAL 0.2 mg/dL (0.2-1.0); TOTAL PROTEIN, SERUM 6.9 g/dL (6.4-8.2)
[2022-05-26 21:47] LABS: ACETAMINOPHEN < 2.0 ug/mL (10-30)
[2022-05-26 21:48] LABS: MAGNESIUM 1.7 mg/dL (1.8-2.4); PHOSPHOROUS 3.8 mg/dL (2.5-4.9)
[2022-05-26 22:38] LABS: *BILIRUBIN,URIN NEGATIVE (NEGATIVE); *BLOOD, URINE 1+ (NEGATIVE); *CLARITY,URINE CLEAR (CLEAR); *COLOR,URINE YELLOW (YELLOW); *KETONES,URINE NEGATIVE (NEGATIVE); *UROBILINOGEN,URINE 0.2 E.U./dl (NORMAL); LEUKOCYTE ESTERASE ,URINE NEGATIVE (NEGATIVE); NITRITE, URINE NEGATIVE (NEGATIVE); UGLUCOSE NEGATIVE (NEGATIVE)
--- NOTE | 2022-05-26 22:45 | NUR ---
Unable to succesfully insert IV after multiple attempts. made aware. Scheduled midline insertion with warehouse general laborer. Karly
[2022-05-26 22:48] LABS: *AMPHETAMINE, URINE NEGATIVE (NEGATIVE); *CANNABINOID, URINE POSITIVE (NEGATIVE); *COCCAINE, URINE NEGATIVE (NEGATIVE); *OPIATE, URINE NEGATIVE (NEGATIVE); *PHENCYCLIDINE SCREEN,URINE NEGATIVE (NEGATIVE)
--- NOTE | 2022-05-26 22:50 | NUR ---
Soft Cervical collar removed. Karly
[2022-05-26] MEDS: MAGNESIUM SULFATE/D5W 100 ML IV SCH (23:00)
[2022-05-26 23:12] LABS: *OCCULT BLOOD STOOL NEGATIVE (NEGATIVE)
--- NOTE | 2022-05-26 23:20 | NUR ---
Patient pass swallow eval
[2022-05-26] MEDS ORDERED: CEFTRIAXONE 1 G VIAL IM ONE (23:30)
[2022-05-26] MEDS ORDERED: SULFAMETH/TRIMETH 800/160 MG TABLET PO ONE (23:30)
[2022-05-26] MEDS ORDERED: CEFTRIAXONE 1 G VIAL ONE (23:32)
[2022-05-26] MEDS ORDERED: LIDOCAINE HCL 1% 20 ML VIAL ONE (23:32)
[2022-05-26] MEDS ORDERED: SULFAMETH/TRIMETH 800/160 MG TABLET ONE (23:33)
--- NOTE | 2022-05-27 00:21 | NUR ---
SUPERVISOR BLOOMING MILL emptied out 1000 cc urine. Jeny/Romeo
--- NOTE | 2022-05-27 00:30 | NUR ---
Called [facility] to page Anny Jerry NP.
--- NOTE | 2022-05-27 01:06 | NUR ---
D/C sanchez, patient tolerated procedure well. Unflated cyril. Jeny/Romeo
--- NOTE | 2022-05-27 01:19 | NUR ---
Dr. Upton on panel call with Sincere Valencia DNP.
[2022-05-27] MEDS ORDERED: REMEDY ESSENTIAL ZINC PASTE 113 GM TP PRN (01:30)
[2022-05-27] MEDS ORDERED: ONDANSETRON 4 MG/2 ML VIAL IV PRN (01:30)
[2022-05-27] MEDS ORDERED: MAGNESIUM HYDROXIDE 30 ML LIQUID UDC PO PRN (01:30)
[2022-05-27] MEDS ORDERED: CEFTRIAXONE 1 G in IV DEXTROSE 5% 50 ML IV SCH (01:30)
[2022-05-27] MEDS ORDERED: ACETAMINOPHEN 325 MG TABLET PO PRN (01:30)
[2022-05-27] MEDS ORDERED: TEMAZEPAM 15 MG CAPSULE PO PRN (01:30)
--- NOTE | 2022-05-27 06:35 | NUR ---
Patient was able to use urinal in bed. 800ML. Patient is still altered, does not know date. Jeny/Romeo
[2022-05-27] MEDS: PANTOPRAZOLE SODIUM 40 MG TABLET.DR PO SCH (07:00)
--- NOTE | 2022-05-27 07:15 | NUR ---
Pt received in bed, sleeping, easily arousable. Verbally responsive but slow to respond, knows name and situation, confused about time and place. No signs of acute distress. Afebrile. NOC nurse endorsed non admin medications overnight, ordered via IV due to being unable to start IV after multiple attempts from multiple nurses. Confirmed with AM shuttle veneering supervisor that the PICC team will be coming this morning, she will follow up on exact time. Meanwhile, pt was able to tolerate oral water, and received IM Injections. Pt is accepted for admission pending bed. Regular diet ordered, called dietary and they will send up breakfast trays.
--- NOTE | 2022-05-27 08:01 | NUR ---
Midline nurse present.
--- NOTE | 2022-05-27 08:04 | NUR ---
Paged [facility] at this time to clarify IV orders re: IV fluids and antibiotics since pt did not receive the ER orders from last night.
[2022-05-27] MEDS ORDERED: PIPERACILLIN SODIUM/TAZOBACTAM 3.375 G in IV DEXTROSE 5% 50 ML IV ONE (08:15)
--- NOTE | 2022-05-27 08:15 | NUR ---
Orderds received from Anny Jerry MACHINE BILLER to reorder Zosyn, Vancomycin and Magnesium IV. New order of NS 90cc/hr IV. Noted and carried out.
[2022-05-27] MEDS: IV NS 1000 ML 1,000 ML IV PRN ×2 (08:20→22:51)
[2022-05-27] MEDS: MAGNESIUM SULFATE/D5W 100 ML IV SCH ×3 (08:20→09:20)
[2022-05-27] MEDS ORDERED: MAGNESIUM SULFATE/D5W 200 ML ONE (08:20)
[2022-05-27] MEDS ORDERED: PIPERACILLIN/TAZOBACTAM/D5W 50 ML IV ONE (08:21)
[2022-05-27 09:38] LABS: SQUAMOUS EPITHELIAL CELL,UR FEW /HPF (NONE SEEN)
[2022-05-27 09:39] LABS: BACTERIA,URINE NONE SEEN /HPF (NONE SEEN); MUCUS,URINE NONE SEEN /LPF (0-FEW); RBC,URINE 0-3 /HPF (0-3); WBC,URINE 0-3 /HPF (0-3)
[2022-05-27] MEDS ORDERED: VANCOMYCIN IV 1,250 MG in IV DEXTROSE 5% 250 ML IV ONE (11:30)
[2022-05-27] MEDS ORDERED: OXYCODONE/APAP 5-325 MG TABLET PO PRN (13:15)
[2022-05-27] MEDS ORDERED: Medication Not On Formulary EA (Prochlorperazine Maleate (Compazine) 10 MG) PO SCH (13:15)
--- NOTE | 2022-05-27 13:44 | NUR ---
Anny Jerry TEXTILE PIN WORKER at bedside.
[2022-05-27] MEDS ORDERED: CEFTRIAXONE /D5W 50ML IVPB **ER PYXIS IV ONE (13:59)
[2022-05-27] MEDS: CEFTRIAXONE 1 G in IV DEXTROSE 5% 50 ML IV SCH (14:05)
[2022-05-27] MEDS ORDERED: CYCL10TA9 PO (16:09)
[2022-05-27] MEDS ORDERED: CYCLOBENZAPRINE HCL 10 MG TABLET PO PRN (16:15)
--- NOTE | 2022-05-27 16:25 | NUR ---
report received from hoister.
[2022-05-27 16:30] VITALS: BP 107/62
--- NOTE | 2022-05-27 16:48 | NUR ---
PT WAS TRANSFERED TO M/S ROOM #306. REPORT WAS GIVEN TO MARY M/S RADHA.
[2022-05-27] MEDS ORDERED: METOCLOPRAMIDE HCL 10 MG TABLET PO SCH (17:00)
[2022-05-27] MEDS ORDERED: Medication Not On Formulary EA (Omeprazole 20 MG) PO SCH (17:00)
[2022-05-27] MEDS ORDERED: BISMUTH SUBSALICYLATE 524 MG PO SCH (17:00)
[2022-05-27] MEDS: HYDROCODONE/APAP 5-325MG TABLET PO PRN ×2 (17:48→23:58)
[2022-05-27] MEDS: CLONAZEPAM 1 MG TABLET PO SCH (17:48)
[2022-05-27] MEDS: LAMOTRIGINE 200 MG TABLET PO SCH (18:46)
[2022-05-27 20:03] VITALS: BP 126/74
[2022-05-27] MEDS: ATORVASTATIN 40 MG TABLET PO SCH (20:09)
[2022-05-27] MEDS ORDERED: LAMOTRIGINE 200 MG TABLET PO SCH (21:00)
[2022-05-27] MEDS ORDERED: VANCOMYCIN IV 200 ML ONE (22:36)
[2022-05-27] MEDS: VANCOMYCIN IV 1,000 MG in IV DEXTROSE 5% 250 ML IV SCH (22:50)
[2022-05-28 04:40] VITALS: BP 137/68
[2022-05-28] MEDS: PANTOPRAZOLE SODIUM 40 MG TABLET.DR PO SCH (06:21)
[2022-05-28] MEDS: HYDROCODONE/APAP 5-325MG TABLET PO PRN ×2 (06:22→15:50)
[2022-05-28 06:41] LABS: MEAN CORPUSCULAR HEMOGLOBIN 28.4 uug (23.8-33.4); MEAN CORPUSCULAR VOLUME 85.8 fL (73.0-96.2); PLATELET COUNT (AUTO) 465 K/uL (152-348)
[2022-05-28 07:22] LABS: CREATININE 1.2 mg/dL (0.6-1.3); MAGNESIUM 1.8 mg/dL (1.8-2.4); PHOSPHOROUS 3.3 mg/dL (2.5-4.9); POTASSIUM 3.3 mmol/L (3.5-5.1)
[2022-05-28] MEDS: METOPROLOL SUCCINATE XL 50 MG TAB.SR.24H PO SCH (08:34)
[2022-05-28] MEDS: CLONAZEPAM 1 MG TABLET PO SCH (08:34)
[2022-05-28] MEDS: ASPIRIN 81 MG TAB.CHEW PO SCH (08:34)
[2022-05-28] MEDS: LAMOTRIGINE 200 MG TABLET PO SCH (08:35)
[2022-05-28] MEDS ORDERED: ESCITALOPRAM OXALATE 10 MG TABLET PO SCH (09:00)
[2022-05-28] MEDS ORDERED: POTASSIUM CHLORIDE 20 MEQ TAB.PRT.SR PO ONE (09:15)
[2022-05-28] MEDS: HYDROCODONE/APAP 10-325 MG TABLET PO PRN (10:45)
--- NOTE | 2022-05-28 11:08 | NUR ---
WOUND CARE CONSULT: PT PRESENTS WITH SOME REDNESS TO LEFT SHOULDER/UPPER ARM AREA, PRESENT ON ADMISSION. CLOSED INCISION NOTED WITHOUT DRAINAGE. DEFER TO PMD. WILL SEE PRN.
[2022-05-28] MEDS: VANCOMYCIN IV 1,000 MG in IV DEXTROSE 5% 250 ML IV SCH ×2 (11:14→22:48)
[2022-05-28 11:30] VITALS: BP 109/51
--- NOTE | 2022-05-28 11:42 | NUR ---
Social Work consult was requested for a patient on medsurg to assess current living situation. Patient is 62-year-old male admitted to the hospital for cellulitis. Patient is alert and oriented X3. Patient forgot which hospital he was in. Patient presents with depressed mood and congruent affect. Patient states his primary contact officer is , Dior Puckett ([phone]) and they have a good relationship. Patient states that his is retired. Patient denies abuse or neglect. Patient states that he lives with his in a two-story house [place] 15 [place] [id number] [address]. Patient states that he is currently retired, is not driving, and has a cane and walker at home. Patient denies a history of substance abuse. Patient states he has a history of depression and has started seeing a therapist, Cj Gleason, three months ago and has his next appointment on 06/07/22. SW provided the patient with emotional support, validation, and coping strategies. Patient states he is not seeing a psychiatrist or taking any medication. Patient denies suicidal or homicidal ideation. Patient states that his plan for discharge is for his , Dior Puckett ([phone]) will drive him home to [id number] [address] [address]. RADHA spoke with rn case management, N[place], who will follow up with the discharge plan.
[2022-05-28] MEDS ORDERED: GABA300C PO (14:49)
[2022-05-28] MEDS: CEFTRIAXONE 1 G in IV DEXTROSE 5% 50 ML IV SCH (15:50)
[2022-05-28 16:00] VITALS: BP 114/73
[2022-05-28] MEDS: ENSURE WITH FIBER 237 ML LIQUID (CHOCOLATE) PO SCH (17:00)
--- NOTE | 2022-05-28 17:27 | NUR ---
PT AOX4; AMBULATORY; SELF CARE; COOPERATIVE WITH ABX TX. LEFT ARM PAIN COMPLAIN GAVE NORCO PRN.PT IS DEPRESSED. RESTLESS AT TIMES. NOTIFIED MD. NOTIFIED . PT WAS SEEN BY HOSPICE TEAM LEAD. FAMILY AT BEDSIDE.
[2022-05-28] MEDS: GABAPENTIN 300 MG CAPSULE PO SCH (18:01)
[2022-05-28 20:00] VITALS: BP 120/60
[2022-05-28] MEDS: ATORVASTATIN 40 MG TABLET PO SCH (20:31)
[2022-05-28] MEDS ORDERED: CLONAZEPAM 1 MG TABLET PO SCH (21:00)
[2022-05-28] MEDS: IV NS 1000 ML 1,000 ML IV PRN (22:13)
--- NOTE | 2022-05-28 22:30 | NUR ---
PATIENT WANDERING IN HALLWAY. NON-COMPLIANT WITH CARE. EASILY AGITATED AND VERBALLY LOUD WITH STAFF. PATIENT BIT IV TUBING IN HALF. REPLACED. RN AT BEDSIDE TO FLUSH AND ASSESS IV SITE. ALL NEEDS ATTENDED. WILL CONTINUE TO MONITOR AND ASSESS.
--- NOTE | 2022-05-28 23:45 | NUR ---
PATIENT AWAKE, AGITATED AND NON-COMPLIANT WITH CARE. PATIENT BIT IV TUBING AND BLOOD NOTED ALL OVER ROOM. PATIENT THREATENING TO LEAVE FACILITY AMA. CALLED PATIENTS DAVID AND SPOKE WITH . MID-LINE STILL INTACT AND PATENT, COVERED PER RN. BED ALARM ON. SITTER AT BEDSIDE. ALL NEEDS ATTENDED. WILL CONTINUE TO MONITOR AND ASSESS.
--- NOTE | 2022-05-29 00:05 | NUR ---
SITTER AT BEDSIDE FOR SAFETY. BED ALARM ON.
[2022-05-29] MEDS: HYDROCODONE/APAP 10-325 MG TABLET PO PRN ×2 (03:01→11:53)
[2022-05-29 04:00] VITALS: BP 110/55
--- NOTE | 2022-05-29 05:52 | NUR ---
Patient fell asleep in bed. Sitter at bedside.
[2022-05-29] MEDS: PANTOPRAZOLE SODIUM 40 MG TABLET.DR PO SCH (06:03)
[2022-05-29 06:49] LABS: HEMATOCRIT 25.9 % (36.7-47.1); MEAN CORPUSCULAR VOLUME 86.1 fL (73.0-96.2); PLATELET COUNT (AUTO) 418 K/uL (152-348)
[2022-05-29 07:09] LABS: POTASSIUM 3.6 mmol/L (3.5-5.1)
[2022-05-29 08:44] VITALS: BP 111/54
[2022-05-29] MEDS: GABAPENTIN 300 MG CAPSULE PO SCH ×2 (08:44→17:21)
[2022-05-29] MEDS: ASPIRIN 81 MG TAB.CHEW PO SCH (08:44)
[2022-05-29] MEDS: LAMOTRIGINE 200 MG TABLET PO SCH (08:44)
[2022-05-29] MEDS: ENSURE WITH FIBER 237 ML LIQUID (CHOCOLATE) PO SCH ×2 (08:45→17:21)
[2022-05-29] MEDS: METOPROLOL SUCCINATE XL 50 MG TAB.SR.24H PO SCH (08:45)
[2022-05-29] MEDS ORDERED: ESCITALOPRAM OXALATE 10 MG TABLET PO SCH (09:00)
[2022-05-29] MEDS ORDERED: OLANZAPINE 2.5 MG TABLET PO PRN (10:30)
[2022-05-29] MEDS: VANCOMYCIN IV 1,000 MG in IV DEXTROSE 5% 250 ML IV SCH ×2 (11:54→23:00)
[2022-05-29 12:14] VITALS: BP 124/88
[2022-05-29] MEDS: CEFTRIAXONE 1 G in IV DEXTROSE 5% 50 ML IV SCH (14:01)
[2022-05-29] MEDS ORDERED: CLONAZEPAM 1 MG TABLET PO SCH (17:00)
[2022-05-29 17:18] VITALS: BP 116/64
[2022-05-29] MEDS: CLONAZEPAM 0.5 MG TABLET PO SCH (17:21)
[2022-05-29 20:00] VITALS: BP 98/63
[2022-05-29] MEDS: ATORVASTATIN 40 MG TABLET PO SCH (21:00)
[2022-05-29] MEDS ORDERED: OLANZAPINE 2.5 MG TABLET PO SCH (21:00)
[2022-05-29] MEDS: MORPHINE SULFATE 2 MG/1 ML DISP.SYRIN IV PRN (22:15)
[2022-05-30] MEDS: HYDROCODONE/APAP 10-325 MG TABLET PO PRN (02:24)
[2022-05-30 04:00] VITALS: BP 106/45
[2022-05-30] MEDS: MORPHINE SULFATE 2 MG/1 ML DISP.SYRIN IV PRN (05:17)
--- NOTE | 2022-05-30 06:00 | NUR ---
--PT REMAINS A/OX4 WITH STABLE VS. IV I/P VIA RIGHT ARM MIDLINE. PT HAS C/O PAIN FROM LEFT SHOULDER. PT IS VERY RESTLESS WITH FACIAL GRIMACING. MD CONTACTED FOR PAIN MED FOR S/S OF SEVERE PAIN. ORD MS 2MG IVP(SEE D/O AND EMAR). PT RATED PAIN AT 9-10/10. PT MED TOTAL OF 2 TIMES. PT ALSO MED WITH NORCO 10MG PO (SEE EMAR). PT HAS SITTER AT BEDSIDE. PT HAS VERBALIZING THAT HE WANTS TO GO HOME SOON. PT ENDORSED TO MARY LUNSFORD IN STABLE COND. JAYLENE HERNANDEZ
[2022-05-30 06:43] LABS: HEMATOCRIT 27.3 % (36.7-47.1); MEAN CORPUSCULAR VOLUME 85.7 fL (73.0-96.2); PLATELET COUNT (AUTO) 423 K/uL (152-348)
[2022-05-30] MEDS: PANTOPRAZOLE SODIUM 40 MG TABLET.DR PO SCH (07:04)
[2022-05-30 07:06] LABS: MAGNESIUM 1.8 mg/dL (1.8-2.4); PHOSPHOROUS 4.2 mg/dL (2.5-4.9); POTASSIUM 3.5 mmol/L (3.5-5.1)
[2022-05-30] MEDS: LAMOTRIGINE 200 MG TABLET PO SCH (08:37)
[2022-05-30] MEDS: ASPIRIN 81 MG TAB.CHEW PO SCH (08:37)
[2022-05-30] MEDS: GABAPENTIN 300 MG CAPSULE PO SCH (08:38)
[2022-05-30] MEDS: CLONAZEPAM 0.5 MG TABLET PO SCH (08:38)
[2022-05-30] MEDS: ENSURE WITH FIBER 237 ML LIQUID (CHOCOLATE) PO SCH (08:38)
[2022-05-30] MEDS: METOPROLOL SUCCINATE XL 50 MG TAB.SR.24H PO SCH (08:45)
[2022-05-30] MEDS ORDERED: ESCITALOPRAM OXALATE 10 MG TABLET PO SCH (09:00)
[2022-05-30] MEDS ORDERED: OLAN2.5T27 PO ×2 (10:16)
[2022-05-30] MEDS ORDERED: CLON0.5T4 PO (10:16)
[2022-05-30] MEDS ORDERED: DOXY-226 PO (10:16)
[2022-05-30] MEDS ORDERED: ESCI-9 PO (10:16)
[2022-05-30] MEDS: VANCOMYCIN IV 1,000 MG in IV DEXTROSE 5% 250 ML IV SCH (11:28)
[2022-05-30 11:36] VITALS: BP 123/75
--- NOTE | 2022-05-30 12:00 | NUR ---
Patient found on the floor between the bed and bathroom. He reports that he needed to go to the bathroom and forgot about being connected to the IV. He denies pain. He as able to get up with minimal assistance. He was place in the bathroom. Denies pain. Denies hitting head. No injuries observed. Racquel Gunderson NP notified. No orders received. Will proceed with plan for discharge to home.
[2022-05-30] MEDS: CEFTRIAXONE 1 G in IV DEXTROSE 5% 50 ML IV SCH (13:21)
--- NOTE | 2022-05-30 14:15 | NUR ---
Patient discharged to home with via private auto. No s/s of discomfort or distress. Midline to right upper arm removed, tolerated well. Discharge instructions/ follow up plan reviewed with the patient and . Prescriptions provided. All belongings sent with the patient.
== END 2022-05-30 14:05 | disposition home or self-care (01) | DRG 602 ==
LOC: ER 20:31 → TRANSITION 05-27 15:51 → MEDSURG3 05-27 16:07
PROVIDERS: ADMIT Nurse Practitioner Acute Care; ATTEND Registered Nurse
PROC: 05H533Z Insertion of Infusion Device into Right Subclavian Vein, Percutaneous Approach (ICD-10-PCS; principal; 2022-05-27)
PROC: B546ZZA Ultrasonography of Right Subclavian Vein, Guidance (ICD-10-PCS; 2022-05-27)
DX: L03.114 Cellulitis of left upper limb (principal); G92.8 Other toxic encephalopathy; E44.0 Moderate protein-calorie malnutrition; F05 Delirium due to known physiological condition; I25.2 Old myocardial infarction; R29.6 Repeated falls; Z87.891 Personal history of nicotine dependence; Z95.5 Presence of coronary angioplasty implant and graft; Z96.641 Presence of right artificial hip joint; Z20.822 Contact with and (suspected) exposure to COVID-19; I25.10 Atherosclerotic heart disease of native coronary artery without angina pectoris; E88.09 Other disorders of plasma-protein metabolism, not elsewhere classified; Z68.27 Body mass index [BMI] 27.0-27.9, adult; Z96.698 Presence of other orthopedic joint implants; K21.9 Gastro-esophageal reflux disease without esophagitis; E78.5 Hyperlipidemia, unspecified; F31.9 Bipolar disorder, unspecified; N40.0 Benign prostatic hyperplasia without lower urinary tract symptoms; Z79.82 Long term (current) use of aspirin
CPT/HCPCS: 36415; 51702; 70450; 71045; 72125; 73030; 73060; 83735; 84100; 84443; 84484; 85025; 85730; 87040; 93005; A4663; G0378; G0480; J0696; J2270; J2543; J3370; J3475; J3490; J7040; J7050

== ENCOUNTER 2022-06-14 17:38 | Inpatient (IN) | payer BC, OTHER ==
[~2022-06-14] VITALS: Ht 175.3 cm; Wt 83.9 kg
[~2022-06-14 17:38] MED LIST changes: -BISM262T27 PO; +CLON0.5T4 PO; -CLON1TAB PO; +DOXY-226 PO; +ESCI-9 PO; -ESCI20TA PO; -FLEXERIL PO; +GABA300C PO; -LAMO200T10 PO; -METO-295 PO; -METR500T PO; +OLAN2.5T27 PO; -OMEP20CA15 PO; -PROC10TA29 PO; -RAMI2.5C55 PO
--- NOTE | 2022-06-14 19:00 | NUR ---
Received pt from MARY Farr, Dr. Moreno currently assessing pt at this time.
[2022-06-14] MEDS ORDERED: HYDROMORPHONE 1 MG/1 ML DISP.SYRIN IV ONE (19:15)
[2022-06-14] MEDS ORDERED: ONDANSETRON 4 MG/2 ML VIAL IV ONE (19:15)
[2022-06-14] MEDS ORDERED: ONDANSETRON 4 MG/2 ML VIAL ONE (19:42)
[2022-06-14] MEDS ORDERED: HYDROMORPHONE 1 MG/1 ML DISP.SYRIN ONE (19:42)
[2022-06-14 20:20] LABS: MEAN CORPUSCULAR VOLUME 81.6 fL (73.0-96.2); PLATELET COUNT (AUTO) 662 K/uL (152-348)
--- NOTE | 2022-06-14 20:20 | NUR ---
Saline lock on R hand, gave all due meds as ordered.
[2022-06-14 20:33] LABS: CREATININE 1.2 mg/dL (0.6-1.3)
[2022-06-14 20:38] LABS: BILIRUBIN,DIRECT 0.1 mg/dL (0.0-0.2); BILIRUBIN,TOTAL 0.3 mg/dL (0.2-1.0); TOTAL PROTEIN, SERUM 8.4 g/dL (6.4-8.2)
[2022-06-14 20:46] LABS: THYROID STIMULATING HORMONE 2.32 mIU/mL (0.358-3.740)
[2022-06-14 21:23] LABS: IRON, SERUM 13 ug/dL (50-175)
[2022-06-14 21:37] LABS: FERRITIN 140 ng/mL (26-388)
[2022-06-14] MEDS ORDERED: CYANOCOBALAMIN 1000 MCG/ML VIAL IM ONE (23:00)
[2022-06-14] MEDS ORDERED: CYANOCOBALAMIN 1000 MCG/ML VIAL ONE (23:10)
--- NOTE | 2022-06-14 23:10 | NUR ---
Called [facility] for panel call
--- NOTE | 2022-06-14 23:16 | NUR ---
Patient has been accepted by Mike Antunez NP
--- NOTE | 2022-06-14 23:36 | NUR ---
called charge nurse Jhoana from [facility] to inform pt. will be admitted. COVID test ordered and carried out, awaiting for result.
--- NOTE | 2022-06-14 23:47 | NUR ---
Jhoana charge rn nurse called back. Pt. will be admitted to [facility] room 307
--- NOTE | 2022-06-15 00:35 | NUR ---
Report given to MARY Alfonso.
[2022-06-15 01:00] VITALS: BP 157/87
--- NOTE | 2022-06-15 01:02 | NUR ---
Pt. admitted to [facility] room 311 , under care of Mike Antunez TANK FARM GAUGER Belongs List completed. RN Naty aware of pt's arrival
--- NOTE | 2022-06-15 01:15 | NUR ---
REPORT RECEIVED BY MARY TRENT AT 0035. PATIENT ADMITTED TO MED-SURG UNIT ROOM 311 AT 0100. AAOX2. NO DISTRESS NOTED AT THIS TIME. EKG WNL. COMPLAINS OF NECK PAIN DOWN TO BOTH OF HIS SHOULDERS. PROVIDED NON-PHARM INTERVENTIONS FIRST. PAIN GOAL MET. INITIAL ADMISSION ASSESSMENTS COMPLETED. SAFETY AND COMFORT MEASURES ENFORCED.
[2022-06-15 04:00] VITALS: BP 130/59
--- NOTE | 2022-06-15 06:58 | NUR ---
PATIENT RESTED INTERMITTENTLY THROUGHOUT THE NIGHT. NO DISTRESS NOTED AT THIS TIME. EKG WNL. PT ON RA. RIGHT HAND 22G IV INTACT AND PATENT. SALINE LOCK. SAFETY AND COMFORT MEASURES MAINTAINED. NO FURTHER COMPLAINTS AT THIS TIME.
[2022-06-15 10:56] VITALS: BP 120/73
[2022-06-15] MEDS ORDERED: CLON1TAB12 PO (12:44)
[2022-06-15] MEDS ORDERED: PANT40TA49 PO (12:44)
--- NOTE | 2022-06-15 12:47 | NUR ---
Patient just woke up, complained of neck pain. Will administer med for pain for him now. Meds are being reconciled right now by Dr. Milligan
[2022-06-15] MEDS: CYCLOBENZAPRINE HCL 10 MG TABLET PO PRN (12:51)
[2022-06-15] MEDS: ENOXAPARIN SODIUM 40 MG/0.4 ML DISP.SYRIN SQ SCH (13:07)
[2022-06-15] MEDS: VANCOMYCIN IV 1,000 MG in IV DEXTROSE 5% 250 ML IV SCH (13:34)
[2022-06-15 14:59] VITALS: BP 127/66
[2022-06-15] MEDS: CEFTRIAXONE 2 G in IV DEXTROSE 5% 100 ML IV SCH (15:42)
[2022-06-15] MEDS ORDERED: NITROGLYCERIN 0.4 MG/TAB BOTTLE SL PRN (16:00)
[2022-06-15] MEDS ORDERED: OLANZAPINE 2.5 MG TABLET PO PRN (16:00)
[2022-06-15] MEDS: GABAPENTIN 300 MG CAPSULE PO SCH (16:12)
[2022-06-15] MEDS: PANTOPRAZOLE SODIUM 40 MG TABLET.DR PO SCH (16:12)
[2022-06-15] MEDS: ASPIRIN 81 MG TAB.CHEW PO SCH (16:12)
[2022-06-15] MEDS: CLONAZEPAM 1 MG TABLET PO SCH (16:13)
[2022-06-15] MEDS: ESCITALOPRAM OXALATE 10 MG TABLET PO SCH (16:13)
[2022-06-15] MEDS ORDERED: LAMOTRIGINE 100 MG TABLET PO ONE (16:15)
[2022-06-15] MEDS: METOPROLOL SUCCINATE XL 50 MG TAB.SR.24H PO SCH (16:18)
--- NOTE | 2022-06-15 19:35 | NUR ---
RECEIVED PATIENT FOUND RESTING COMFORTABLY IN BED. AAOX4. AMBULATORY WITH MINIMAL ASSIST. NO DISTRESS NOTED AT THIS TIME. RIGHT AC IV SITE IS INTACT AND PATENT. NO COMPLAINTS AT THIS TIME NOTED. SAFETY AND COMFORT MEASURES ENFORCED. BISHOP HICKMAN FOR INFECTIOUS DISEASE CAME TO SPEAK WITH PATIENT AT THIS TIME REGARDING CONTINUED PLAN OF CARE.
[2022-06-15 19:55] VITALS: BP 130/83
[2022-06-16] MEDS: VANCOMYCIN IV 1,000 MG in IV DEXTROSE 5% 250 ML IV SCH ×2 (02:04→14:28)
[2022-06-16 04:00] VITALS: BP 125/81
--- NOTE | 2022-06-16 05:44 | NUR ---
Received pt alert and oriented x4 no signs of respiratory distress noted. Pt c/o pain and was given norco 5/325mg 1 tablet pt tolerated well. pt also given iv antibiotic Vancocin iv tolerated well no signs of adverse reaction from medication. Will endorse to am nurse. and fall along with safety maintain.
--- NOTE | 2022-06-16 06:35 | NUR ---
PATIENT SLEPT INTERMITTENTLY THROUGHOUT THE NIGHT. NO DISTRESS NOTED AT THIS TIME. PREVIOUS IV SITE PULLED OUT. NEW RIGHT FOREARM 22G IV SITE PLACED AT THIS TIME AND IS INTACT AND PATENT. ANTIBIOTICS INFUSED AND COMPLETED THROUGHOUT THE SHIFT. NO COMPLAINTS NOTED AT THIS TIME. SAFETY AND COMFORT MEASURES MAINTAINED.
[2022-06-16 07:22] LABS: HEMATOCRIT 28.8 % (36.7-47.1); MEAN CORPUSCULAR HEMOGLOBIN 26.2 uug (23.8-33.4); MEAN CORPUSCULAR VOLUME 80.3 fL (73.0-96.2); PLATELET COUNT (AUTO) 666 K/uL (152-348)
[2022-06-16 07:35] LABS: MAGNESIUM 1.8 mg/dL (1.8-2.4); POTASSIUM 3.9 mmol/L (3.5-5.1)
[2022-06-16] MEDS: CYCLOBENZAPRINE HCL 10 MG TABLET PO PRN (08:45)
[2022-06-16] MEDS: CLONAZEPAM 1 MG TABLET PO SCH ×2 (08:45→16:49)
[2022-06-16] MEDS: ASPIRIN 81 MG TAB.CHEW PO SCH (08:45)
[2022-06-16] MEDS: ESCITALOPRAM OXALATE 10 MG TABLET PO SCH (08:45)
[2022-06-16] MEDS: GABAPENTIN 300 MG CAPSULE PO SCH ×2 (08:46→16:50)
[2022-06-16] MEDS: PANTOPRAZOLE SODIUM 40 MG TABLET.DR PO SCH (08:46)
[2022-06-16] MEDS: LAMOTRIGINE 200 MG TABLET PO SCH (08:46)
[2022-06-16] MEDS: ENOXAPARIN SODIUM 40 MG/0.4 ML DISP.SYRIN SQ SCH (08:47)
[2022-06-16] MEDS: METOPROLOL SUCCINATE XL 50 MG TAB.SR.24H PO SCH (08:48)
[2022-06-16] MEDS: HYDROCODONE/APAP 5-325MG TABLET PO PRN ×3 (08:55→23:44)
[2022-06-16 11:56] VITALS: BP 117/74
[2022-06-16 16:00] VITALS: BP 133/90
[2022-06-16] MEDS: CEFTRIAXONE 2 G in IV DEXTROSE 5% 100 ML IV SCH (16:16)
[2022-06-16 20:30] VITALS: BP 101/71
[2022-06-17] MEDS: VANCOMYCIN IV 1,000 MG in IV DEXTROSE 5% 250 ML IV SCH (02:22)
[2022-06-17 04:55] VITALS: BP 111/62
[2022-06-17 07:16] LABS: HEMATOCRIT 28.8 % (36.7-47.1); MEAN CORPUSCULAR HEMOGLOBIN 26.2 uug (23.8-33.4); MEAN CORPUSCULAR VOLUME 80.5 fL (73.0-96.2); PLATELET COUNT (AUTO) 595 K/uL (152-348)
[2022-06-17 07:32] LABS: CREATININE 1.1 mg/dL (0.6-1.3); MAGNESIUM 1.8 mg/dL (1.8-2.4); PHOSPHOROUS 4.7 mg/dL (2.5-4.9)
[2022-06-17] MEDS: ASPIRIN 81 MG TAB.CHEW PO SCH (10:08)
[2022-06-17] MEDS: GABAPENTIN 300 MG CAPSULE PO SCH ×2 (10:09→16:35)
[2022-06-17] MEDS: CLONAZEPAM 1 MG TABLET PO SCH ×2 (10:09→16:35)
[2022-06-17] MEDS: ESCITALOPRAM OXALATE 10 MG TABLET PO SCH (10:09)
[2022-06-17] MEDS: CYCLOBENZAPRINE HCL 10 MG TABLET PO PRN (10:13)
[2022-06-17] MEDS: HYDROCODONE/APAP 5-325MG TABLET PO PRN ×2 (10:13→16:37)
[2022-06-17] MEDS: ENOXAPARIN SODIUM 40 MG/0.4 ML DISP.SYRIN SQ SCH (10:17)
[2022-06-17] MEDS: LAMOTRIGINE 200 MG TABLET PO SCH (10:17)
[2022-06-17] MEDS: PANTOPRAZOLE SODIUM 40 MG TABLET.DR PO SCH (10:17)
[2022-06-17] MEDS ORDERED: VANC1.257 IV (10:50)
[2022-06-17] MEDS ORDERED: CEFT2VIA14 IV (10:50)
[2022-06-17 11:02] VITALS: BP 109/66
[2022-06-17 11:14] VITALS: BP 109/66
[2022-06-17] MEDS: METOPROLOL SUCCINATE XL 50 MG TAB.SR.24H PO SCH (12:42)
[2022-06-17] MEDS ORDERED: VANCOMYCIN IV 1,250 MG in IV DEXTROSE 5% 250 ML IV SCH (13:00)
[2022-06-17 15:09] VITALS: BP 112/59
[2022-06-17] MEDS: CEFTRIAXONE 2 G in IV DEXTROSE 5% 100 ML IV SCH (16:38)
--- NOTE | 2022-06-17 21:00 | NUR ---
Talked with nurse at [facility] pt is going to room 558 bed 1 instead of 552 bed 2 report taken by nurse Yo. Pt is alert and oriented x4. [facility] ambulance service was called and said ambulance will be here by 2200 and ambulance arrived at 2200 and called nurse at [place] to informed her that pt should be there by 2300. Pt signed all documents and pt left via gurney no signs of distressed noted.
== END 2022-06-17 22:30 | disposition short-term general hospital (02) | DRG 559 ==
LOC: ER 17:38 → MEDSURG3 23:25
PROVIDERS: ADMIT Nurse Practitioner Acute Care; ATTEND Nurse Practitioner Acute Care
DX: T84.611A Infection and inflammatory reaction due to internal fixation device of left humerus, initial encounter (principal); A41.9 Sepsis, unspecified organism; M86.8X2 Other osteomyelitis, upper arm; L03.114 Cellulitis of left upper limb; D50.9 Iron deficiency anemia, unspecified; N40.0 Benign prostatic hyperplasia without lower urinary tract symptoms; Z79.82 Long term (current) use of aspirin; Z96.641 Presence of right artificial hip joint; K29.70 Gastritis, unspecified, without bleeding; I25.10 Atherosclerotic heart disease of native coronary artery without angina pectoris; I25.2 Old myocardial infarction; T84.498A Other mechanical complication of other internal orthopedic devices, implants and grafts, initial encounter; Z79.899 Other long term (current) drug therapy; Y83.8 Other surgical procedures as the cause of abnormal reaction of the patient, or of later complication, without mention of misadventure at the time of the procedure; Y92.009 Unspecified place in unspecified non-institutional (private) residence as the place of occurrence of the external cause; Z95.5 Presence of coronary angioplasty implant and graft; M89.522 Osteolysis, left upper arm
CPT/HCPCS: 36415; 71045; 73060; 83550; 83605; 83735; 84100; 84443; 85025; 85651; 87040; 93005; A4663; G0378; J0696; J1170; J1650; J2405; J3370; J3420; J7050; J7120

== ENCOUNTER 2022-08-02 12:14 | Inpatient (IN) | payer BC, OTHER ==
[~2022-08-02] VITALS: Ht 175.3 cm; Wt 86.2 kg
--- NOTE | 2022-08-02 | NUR ---
receive pt via stretcher to rm 323 in no distress .v/s and assessment done same stable .photo of lt shoulder taken. iv rt upper arm in place and iv antibiotics given as per orders.pt appears to be depress and crying for his mother not visinting him.hem.He wanted to go home so he can have visitors.
[~2022-08-02 12:14] MED LIST changes: +CEFT2VIA14 IV; -CLON0.5T4 PO; +CLON1TAB12 PO; -DOXY-226 PO; -IBUP-1958 PO; -OXYC-128 PO; +PANT40TA49 PO; +VANC1.257 IV
--- NOTE | 2022-08-02 12:15 | NUR ---
RECIEVED PT CONFUSED; A/0 X 1; LEFT UPPER ARM SURGICAL CLOSURE FROM PREVIOUS SURGERY. SURGICAL WOUND IS WARM AND ERYTHEMATOUS.
[2022-08-02] MEDS ORDERED: VANCOMYCIN IV 1,000 MG in IV DEXTROSE 5% 250 ML IV ONE (12:45)
[2022-08-02] MEDS ORDERED: IV NORMAL SALINE 1000 ML BAG IV ONE (12:45)
[2022-08-02] MEDS ORDERED: PIPERACILLIN SODIUM/TAZOBACTAM 3.375 G in IV DEXTROSE 5% 50 ML IV ONE (12:45)
[2022-08-02 13:24] LABS: HEMATOCRIT 25.7 % (36.7-47.1); MEAN CORPUSCULAR HEMOGLOBIN 27.6 uug (23.8-33.4); MEAN CORPUSCULAR VOLUME 87.2 fL (73.0-96.2); PLATELET COUNT (AUTO) 405 K/uL (152-348)
--- NOTE | 2022-08-02 14:07 | NUR ---
Dr Ruiz spoke to Dr Tucker for admission.
[2022-08-02 14:12] LABS: ALANINE AMINOTRANSFERASE 13 U/L (16-63); ALKALINE PHOSPHATASE 137 U/L (50-136); ASPARTATE AMINOTRANSFERASE 11 U/L (15-37); BILIRUBIN,DIRECT 0.1 mg/dL (0.0-0.2); BILIRUBIN,TOTAL 0.3 mg/dL (0.2-1.0); CARBON DIOXIDE 24 mmol/L (21-32); CHLORIDE 106 mmol/L (98-107); CREATININE 1.2 mg/dL (0.6-1.3); GLUCOSE 106 mg/dL (74-106); POTASSIUM 3.7 mmol/L (3.5-5.1); TOTAL PROTEIN, SERUM 6.3 g/dL (6.4-8.2); UREA NITROGEN, BLOOD 17 mg/dL (7-18)
[2022-08-02] MEDS ORDERED: PIPERACILLIN SODIUM/TAZO 3.375 GM VIAL ONE (15:22)
[2022-08-02 15:50] LABS: *BILIRUBIN,URIN NEGATIVE (NEGATIVE); *BLOOD, URINE NEGATIVE (NEGATIVE); *CLARITY,URINE CLEAR (CLEAR); *COLOR,URINE YELLOW (YELLOW); *KETONES,URINE NEGATIVE (NEGATIVE); *UROBILINOGEN,URINE 0.2 E.U./dl (NORMAL); LEUKOCYTE ESTERASE ,URINE NEGATIVE (NEGATIVE); NITRITE, URINE NEGATIVE (NEGATIVE); PH,URINE 6.5 (5.0-8.0); UGLUCOSE NEGATIVE (NEGATIVE)
[2022-08-02] MEDS ORDERED: VANCOMYCIN IV 200 ML ONE (16:23)
--- NOTE | 2022-08-02 19:20 | NUR ---
Received report from MARY Johnson.
--- NOTE | 2022-08-02 19:27 | NUR ---
SBAR TO ASHOK HERNANDEZ
--- NOTE | 2022-08-02 20:18 | NUR ---
Report given to MARY Almendarez.
[2022-08-02] MEDS ORDERED: ONDANSETRON 4 MG/2 ML VIAL IV PRN (20:30)
[2022-08-02] MEDS ORDERED: NITROGLYCERIN 0.4 MG/TAB BOTTLE SL PRN (20:30)
[2022-08-02] MEDS ORDERED: ACETAMINOPHEN 325 MG TABLET PO PRN (20:30)
[2022-08-02] MEDS ORDERED: MAGNESIUM HYDROXIDE 30 ML LIQUID UDC PO PRN (20:30)
[2022-08-02] MEDS ORDERED: MORPHINE SULFATE 2 MG/1 ML DISP.SYRIN IV PRN (20:30)
--- NOTE | 2022-08-02 20:50 | NUR ---
Pt. admitted to TELE rm 323, under care of Dr. Yoder Belongs List completed MARY Almendarez aware of patient's arrival to unit.
[2022-08-02] MEDS ORDERED: Medication Not On Formulary EA (Atorvastatin Calcium (Lipitor) 80 MG) PO SCH (21:00)
[2022-08-02 21:30] VITALS: BP 116/68
[2022-08-02] MEDS: DOCUSATE SODIUM 100 MG CAPSULE PO SCH (21:49)
[2022-08-02] MEDS: ATORVASTATIN 40 MG TABLET PO SCH (21:49)
[2022-08-02] MEDS: GABAPENTIN 300 MG CAPSULE PO SCH (21:49)
[2022-08-02] MEDS: PIPERACILLIN SODIUM/TAZOBACTAM 3.375 G in IV DEXTROSE 5% 50 ML IV SCH (21:50)
[2022-08-02] MEDS: POTASSIUM CHLORIDE 20 MEQ in IV NS 1000 ML 1,000 ML IV PRN (21:53)
[2022-08-02] MEDS ORDERED: VANCOMYCIN IV 1,000 MG in IV DEXTROSE 5% 250 ML IV SCH (23:00)
[2022-08-03] VITALS: BP 105/69
[2022-08-03 04:00] VITALS: BP 134/82
[2022-08-03] MEDS: PIPERACILLIN SODIUM/TAZOBACTAM 3.375 G in IV DEXTROSE 5% 50 ML IV SCH ×4 (05:43→21:14)
[2022-08-03] MEDS: VANCOMYCIN IV 1,000 MG in IV DEXTROSE 5% 250 ML IV SCH ×2 (05:43→17:06)
[2022-08-03] MEDS: OLANZAPINE 2.5 MG TABLET PO PRN ×3 (05:46→21:13)
[2022-08-03] MEDS: PANTOPRAZOLE SODIUM 40 MG TABLET.DR PO SCH (05:52)
[2022-08-03] MEDS ORDERED: PANTOPRAZOLE SODIUM 40 MG TABLET.DR PO SCH (07:00)
[2022-08-03 07:01] LABS: HEMATOCRIT 26.5 % (36.7-47.1); MEAN CORPUSCULAR VOLUME 87.8 fL (73.0-96.2); PLATELET COUNT (AUTO) 423 K/uL (152-348)
[2022-08-03 07:21] LABS: BILIRUBIN,TOTAL 0.3 mg/dL (0.2-1.0); CREATININE 1.1 mg/dL (0.6-1.3); MAGNESIUM 1.8 mg/dL (1.8-2.4); PHOSPHOROUS 3.2 mg/dL (2.5-4.9); POTASSIUM 3.3 mmol/L (3.5-5.1); TOTAL PROTEIN, SERUM 6.2 g/dL (6.4-8.2)
[2022-08-03] MEDS: ASPIRIN 81 MG TAB.CHEW PO SCH (09:10)
[2022-08-03] MEDS: GABAPENTIN 300 MG CAPSULE PO SCH ×2 (09:10→17:06)
[2022-08-03] MEDS: CLONAZEPAM 1 MG TABLET PO SCH ×2 (09:11→17:06)
[2022-08-03] MEDS: ESCITALOPRAM OXALATE 10 MG TABLET PO SCH (09:11)
[2022-08-03] MEDS: METOPROLOL SUCCINATE XL 50 MG TAB.SR.24H PO SCH (09:18)
[2022-08-03] MEDS ORDERED: POTASSIUM CHLORIDE 20 MEQ TAB.PRT.SR PO ONE (11:00)
[2022-08-03 11:33] VITALS: BP 94/61
[2022-08-03] MEDS: LAMOTRIGINE 200 MG TABLET PO SCH (11:51)
[2022-08-03] MEDS: MORPHINE SULFATE 4 MG/1 ML DISP.SYRIN IV PRN ×4 (11:54→23:50)
[2022-08-03 16:17] VITALS: BP 131/75
[2022-08-03] MEDS: ENOXAPARIN SODIUM 40 MG/0.4 ML DISP.SYRIN SQ SCH (17:12)
[2022-08-03] MEDS: DOCUSATE SODIUM 100 MG CAPSULE PO SCH (21:13)
[2022-08-03] MEDS: ATORVASTATIN 40 MG TABLET PO SCH (21:13)
[2022-08-04 00:38] VITALS: BP 108/58
[2022-08-04] MEDS: VANCOMYCIN IV 1,000 MG in IV DEXTROSE 5% 250 ML IV SCH (04:00)
[2022-08-04 05:57] VITALS: BP 124/54
[2022-08-04] MEDS: PANTOPRAZOLE SODIUM 40 MG TABLET.DR PO SCH (06:05)
[2022-08-04] MEDS: PIPERACILLIN SODIUM/TAZOBACTAM 3.375 G in IV DEXTROSE 5% 50 ML IV SCH ×4 (06:08→22:49)
[2022-08-04 06:36] LABS: HEMATOCRIT 26.6 % (36.7-47.1); MEAN CORPUSCULAR HEMOGLOBIN 27.7 uug (23.8-33.4); MEAN CORPUSCULAR VOLUME 87.3 fL (73.0-96.2); PLATELET COUNT (AUTO) 411 K/uL (152-348)
[2022-08-04 07:08] LABS: CREATININE 1.2 mg/dL (0.6-1.3); MAGNESIUM 1.9 mg/dL (1.8-2.4); PHOSPHOROUS 4.3 mg/dL (2.5-4.9); POTASSIUM 3.9 mmol/L (3.5-5.1)
[2022-08-04 08:00] VITALS: BP 128/62
[2022-08-04] MEDS: ASPIRIN 81 MG TAB.CHEW PO SCH (10:04)
[2022-08-04] MEDS: GABAPENTIN 300 MG CAPSULE PO SCH ×2 (10:04→17:28)
[2022-08-04] MEDS: LAMOTRIGINE 200 MG TABLET PO SCH ×2 (10:05→22:13)
[2022-08-04] MEDS: CLONAZEPAM 1 MG TABLET PO SCH ×2 (10:05→17:28)
[2022-08-04] MEDS: METOPROLOL SUCCINATE XL 50 MG TAB.SR.24H PO SCH (10:05)
[2022-08-04] MEDS: ESCITALOPRAM OXALATE 10 MG TABLET PO SCH (10:06)
[2022-08-04] MEDS: ENOXAPARIN SODIUM 40 MG/0.4 ML DISP.SYRIN SQ SCH (10:08)
[2022-08-04] MEDS: MORPHINE SULFATE 4 MG/1 ML DISP.SYRIN IV PRN ×2 (11:01→21:01)
[2022-08-04 12:00] VITALS: BP 106/56
[2022-08-04] MEDS: DOXYCYCLINE HYCLATE 100 MG TABLET PO SCH ×2 (14:19→22:46)
[2022-08-04 16:00] VITALS: BP 128/68
[2022-08-04] MEDS: DOCUSATE SODIUM 100 MG CAPSULE PO SCH (20:59)
[2022-08-04] MEDS: ZOLPIDEM 5 MG TABLET PO PRN (21:00)
[2022-08-04] MEDS: ATORVASTATIN 40 MG TABLET PO SCH (21:00)
[2022-08-04] MEDS: OLANZAPINE 2.5 MG TABLET PO PRN (22:13)
[2022-08-04] MEDS ORDERED: DOXYCYCLINE HYCLATE 100 MG TABLET ONE (22:34)
[2022-08-05] VITALS: BP 109/76
--- NOTE | 2022-08-05 01:00 | NUR ---
pt v/s and assessment done ,same stable .pt medicated for pain with good effects. Resting at this time however pt keep taking off monitor and disconnecting iv fluids .pt explained the importance of getting the iv antibiotic.At this time pt refuse to have tele monitor in place and pt keep locking iv fluids and disconnecting fluids .electronics maintenance technician informed of pt desire not wanting monitor in place.
[2022-08-05] MEDS ORDERED: VANCOMYCIN IV 1,000 MG in IV DEXTROSE 5% 250 ML IV SCH ×2 (04:00→22:00)
[2022-08-05] MEDS: PANTOPRAZOLE SODIUM 40 MG TABLET.DR PO SCH (05:20)
[2022-08-05] MEDS: MORPHINE SULFATE 4 MG/1 ML DISP.SYRIN IV PRN ×3 (05:20→20:21)
[2022-08-05] MEDS: PIPERACILLIN SODIUM/TAZOBACTAM 3.375 G in IV DEXTROSE 5% 50 ML IV SCH ×3 (05:27→18:13)
[2022-08-05 06:21] LABS: HEMATOCRIT 28.5 % (36.7-47.1); MEAN CORPUSCULAR HEMOGLOBIN 27.7 uug (23.8-33.4); PLATELET COUNT (AUTO) 437 K/uL (152-348)
[2022-08-05 06:39] LABS: POTASSIUM 3.7 mmol/L (3.5-5.1)
[2022-08-05 06:40] LABS: CREATININE 1.1 mg/dL (0.6-1.3); PHOSPHOROUS 4.3 mg/dL (2.5-4.9)
[2022-08-05] MEDS: ASPIRIN 81 MG TAB.CHEW PO SCH (08:48)
[2022-08-05] MEDS: GABAPENTIN 300 MG CAPSULE PO SCH ×2 (08:48→17:23)
[2022-08-05] MEDS: CLONAZEPAM 1 MG TABLET PO SCH ×2 (08:48→17:23)
[2022-08-05] MEDS: ESCITALOPRAM OXALATE 10 MG TABLET PO SCH (08:48)
[2022-08-05] MEDS: DOXYCYCLINE HYCLATE 100 MG TABLET PO SCH ×2 (08:48→20:21)
[2022-08-05] MEDS: ENOXAPARIN SODIUM 40 MG/0.4 ML DISP.SYRIN SQ SCH (08:50)
[2022-08-05] MEDS: METOPROLOL SUCCINATE XL 50 MG TAB.SR.24H PO SCH (08:57)
[2022-08-05 12:00] VITALS: BP 123/49
--- NOTE | 2022-08-05 13:00 | NUR ---
Pt. is new admit. Alert and oriented x4. Able to make the need known. Corporative with the care given. Admitted due to PNA. Pt. is on Oxygen and no C/O SOB noted. Has an IV line on the back of right hand and is patent and intact. Will keep monitoring the resident. Addendum: 08/05/22 at 1859 by ASHISH CARLOS RN Error
[2022-08-05 16:31] VITALS: BP 131/76
[2022-08-05] MEDS: POTASSIUM CHLORIDE 20 MEQ in IV NS 1000 ML 1,000 ML IV PRN (16:52)
--- NOTE | 2022-08-05 18:31 | NUR ---
Pt. noted to be stable during the shift. No acute distress noted. All need attended and met. Compliance with the care given. Will keep monitoring the resident.
[2022-08-05 20:00] VITALS: BP 148/85
[2022-08-05] MEDS: DOCUSATE SODIUM 100 MG CAPSULE PO SCH (20:21)
[2022-08-05] MEDS: OLANZAPINE 2.5 MG TABLET PO PRN (20:21)
[2022-08-05] MEDS: ATORVASTATIN 40 MG TABLET PO SCH (20:21)
[2022-08-06] MEDS: HYDROCODONE/APAP 5-325MG TABLET PO PRN ×3 (00:42→12:51)
[2022-08-06] MEDS: ZOLPIDEM 5 MG TABLET PO PRN (00:50)
[2022-08-06] MEDS: PIPERACILLIN SODIUM/TAZOBACTAM 3.375 G in IV DEXTROSE 5% 50 ML IV SCH ×3 (00:53→13:38)
[2022-08-06 04:00] VITALS: BP 139/78
[2022-08-06] MEDS: PANTOPRAZOLE SODIUM 40 MG TABLET.DR PO SCH ×2 (06:19→08:33)
[2022-08-06 07:17] LABS: HEMATOCRIT 30.1 % (36.7-47.1); MEAN CORPUSCULAR HEMOGLOBIN 28.1 uug (23.8-33.4); MEAN CORPUSCULAR VOLUME 87.2 fL (73.0-96.2); PLATELET COUNT (AUTO) 439 K/uL (152-348)
[2022-08-06 07:48] LABS: CREATININE 1.2 mg/dL (0.6-1.3); MAGNESIUM 1.9 mg/dL (1.8-2.4); PHOSPHOROUS 4.6 mg/dL (2.5-4.9)
[2022-08-06] MEDS: ASPIRIN 81 MG TAB.CHEW PO SCH (08:33)
[2022-08-06] MEDS: ESCITALOPRAM OXALATE 10 MG TABLET PO SCH (08:33)
[2022-08-06] MEDS: LAMOTRIGINE 200 MG TABLET PO SCH (08:34)
[2022-08-06] MEDS: GABAPENTIN 300 MG CAPSULE PO SCH ×2 (08:34→17:21)
[2022-08-06] MEDS: CLONAZEPAM 1 MG TABLET PO SCH ×2 (08:34→17:21)
[2022-08-06] MEDS: DOXYCYCLINE HYCLATE 100 MG TABLET PO SCH (08:43)
[2022-08-06] MEDS: ENOXAPARIN SODIUM 40 MG/0.4 ML DISP.SYRIN SQ SCH (08:44)
[2022-08-06] MEDS: METOPROLOL SUCCINATE XL 50 MG TAB.SR.24H PO SCH (08:55)
[2022-08-06 12:00] VITALS: BP 143/74
[2022-08-06 16:00] VITALS: BP 120/72
[2022-08-06] MEDS: OXACILLIN SODIUM 2 G in IV NORMAL SALINE 100 ML IV SCH ×2 (17:36→22:21)
[2022-08-06] MEDS: MORPHINE SULFATE 4 MG/1 ML DISP.SYRIN IV PRN ×2 (18:00→22:21)
--- NOTE | 2022-08-06 18:10 | NUR ---
62 year old male who came in for shoulder cellulitis. He has redness and warmth to left shoulder. Patient appears to be confuse at time and non confused. He is room air, has SHINE midline. patient is continence to both bowel and bladder. Patient is full code, no known allergies on regular diet.
--- NOTE | 2022-08-06 19:30 | NUR ---
Received patient sitting upright in bed. AAOx4. In no acute distress. Denies any pain or SOB at this time. Potassium IV infusing on right upper arm midline. Needs assessed and attended to. Safety measure initiated and call light within reached.
[2022-08-06 20:00] VITALS: BP 104/88
[2022-08-06] MEDS: DOCUSATE SODIUM 100 MG CAPSULE PO SCH (20:07)
[2022-08-06] MEDS: ATORVASTATIN 40 MG TABLET PO SCH (20:07)
[2022-08-07] MEDS: HYDROCODONE/APAP 5-325MG TABLET PO PRN ×3 (00:15→20:55)
[2022-08-07] MEDS: MORPHINE SULFATE 4 MG/1 ML DISP.SYRIN IV PRN ×4 (03:03→17:36)
[2022-08-07 04:00] VITALS: BP 115/68
[2022-08-07] MEDS: OXACILLIN SODIUM 2 G in IV NORMAL SALINE 100 ML IV SCH ×4 (04:25→22:20)
--- NOTE | 2022-08-07 04:37 | NUR ---
Midline on right upper arm positional. Place a PIV on left wrist #22G.
--- NOTE | 2022-08-07 05:15 | NUR ---
AAOx4 with periods of forgetfulness. In no acute distress. Denies any SOB. Potassium IV continue to infusing on left wrist PIV. NO adverse reaction noted from IV antibiotics. Needs attended to and met. Safety measure maintained and call light within reached.
[2022-08-07 07:30] LABS: HEMATOCRIT 33.8 % (36.7-47.1); MEAN CORPUSCULAR VOLUME 87.2 fL (73.0-96.2); PLATELET COUNT (AUTO) 467 K/uL (152-348)
[2022-08-07 07:56] LABS: CREATININE 1.1 mg/dL (0.6-1.3); PHOSPHOROUS 4.8 mg/dL (2.5-4.9); POTASSIUM 4.2 mmol/L (3.5-5.1)
[2022-08-07] MEDS: ASPIRIN 81 MG TAB.CHEW PO SCH (09:58)
[2022-08-07] MEDS: GABAPENTIN 300 MG CAPSULE PO SCH ×2 (09:59→17:18)
[2022-08-07] MEDS: ESCITALOPRAM OXALATE 10 MG TABLET PO SCH (09:59)
[2022-08-07] MEDS: CLONAZEPAM 1 MG TABLET PO SCH ×2 (09:59→17:18)
[2022-08-07] MEDS: METOPROLOL SUCCINATE XL 50 MG TAB.SR.24H PO SCH (10:03)
[2022-08-07] MEDS: ENOXAPARIN SODIUM 40 MG/0.4 ML DISP.SYRIN SQ SCH (10:04)
[2022-08-07] MEDS: LAMOTRIGINE 200 MG TABLET PO SCH (10:06)
[2022-08-07] MEDS: POTASSIUM CHLORIDE 20 MEQ in IV NS 1000 ML 1,000 ML IV PRN (11:40)
[2022-08-07 11:50] VITALS: BP 103/67
--- NOTE | 2022-08-07 11:50 | NUR ---
WOUND CARE CONSULT: PT PRESENTS WITH CLOSED INCISION WITH SOME ERYTHEMA TO LEFT SHOULDER, NO DRAINAGE, PRESENT ON ADMISSION. DEFER TO PMD FOR SHOULDER. PT IS AMBULATORY AND CONTINENT.
[2022-08-07 15:36] VITALS: BP 115/62
--- NOTE | 2022-08-07 20:00 | NUR ---
Received patient lying in bed. In no acute distress. Potassium IV infusing to PIV on left wrist. Needs assessed and attended to. Safety measure initiated and call light within reached.
[2022-08-07] MEDS: DOCUSATE SODIUM 100 MG CAPSULE PO SCH (20:54)
[2022-08-07] MEDS: ATORVASTATIN 40 MG TABLET PO SCH (20:55)
[2022-08-08] MEDS: MORPHINE SULFATE 4 MG/1 ML DISP.SYRIN IV PRN ×2 (00:01→04:07)
[2022-08-08] MEDS: POTASSIUM CHLORIDE 20 MEQ in IV NS 1000 ML 1,000 ML IV PRN (02:34)
[2022-08-08] MEDS: OXACILLIN SODIUM 2 G in IV NORMAL SALINE 100 ML IV SCH (04:06)
[2022-08-08] MEDS: PANTOPRAZOLE SODIUM 40 MG TABLET.DR PO SCH (06:02)
--- NOTE | 2022-08-08 06:07 | NUR ---
Pain medication and heating pad per pt request provided for complain of left shoulder pain. No adverse reaction noted from IV antibiotics. Needs attended to and met. Safety measure maintained and call light within reached.
[2022-08-08] MEDS: HYDROCODONE/APAP 5-325MG TABLET PO PRN (06:53)
--- NOTE | 2022-08-08 08:00 | NUR ---
received awake alert and oriented, sitting on the bed, states he's going home this morning, pain better after pain pill given this morning, PICC line on the right upper arm intact and no redness/swelling noted on site, IVF infusing on the left wrist-no swelling/redness noted on site, all needs rendered
[2022-08-08] MEDS ORDERED: VANC1PLA9 IV (08:30)
[2022-08-08] MEDS ORDERED: HYDR-3972 PO (08:30)
--- NOTE | 2022-08-08 08:30 | NUR ---
pt to go home with home health for IV ABX- pt states is coming to pick him up
[2022-08-08] MEDS: LAMOTRIGINE 200 MG TABLET PO SCH (08:34)
[2022-08-08] MEDS: ASPIRIN 81 MG TAB.CHEW PO SCH (08:34)
[2022-08-08] MEDS: CLONAZEPAM 1 MG TABLET PO SCH (08:34)
[2022-08-08 08:35] VITALS: BP 142/85
[2022-08-08] MEDS: METOPROLOL SUCCINATE XL 50 MG TAB.SR.24H PO SCH (08:35)
[2022-08-08] MEDS: ESCITALOPRAM OXALATE 10 MG TABLET PO SCH (08:35)
[2022-08-08] MEDS: GABAPENTIN 300 MG CAPSULE PO SCH (08:35)
[2022-08-08] MEDS: ENOXAPARIN SODIUM 40 MG/0.4 ML DISP.SYRIN SQ SCH (08:37)
--- NOTE | 2022-08-08 09:15 | NUR ---
discharge instructions given- verbalized understanding, picc line in place/ patent and dsg intact, ivf discontinued and removed on left wrist-no swelling/redness on site, ID bracelet removed, all belongings with him
--- NOTE | 2022-08-08 09:30 | NUR ---
escorted to car per w/c in stable condition under 's care
== END 2022-08-08 09:25 | disposition home health service (06) | DRG 863 ==
LOC: ER 12:15 → TELE3 18:00 → MEDSURG3 08-05 20:54
PROVIDERS: ADMIT Nurse Practitioner Family; ATTEND Nurse Practitioner Acute Care
PROC: 05H533Z Insertion of Infusion Device into Right Subclavian Vein, Percutaneous Approach (ICD-10-PCS; principal; 2022-08-03)
PROC: B546ZZA Ultrasonography of Right Subclavian Vein, Guidance (ICD-10-PCS; 2022-08-03)
PROC: 02HV33Z Insertion of Infusion Device into Superior Vena Cava, Percutaneous Approach (ICD-10-PCS; 2022-08-07)
PROC: B548ZZA Ultrasonography of Superior Vena Cava, Guidance (ICD-10-PCS; 2022-08-07)
DX: T81.49XA Infection following a procedure, other surgical site, initial encounter (principal); L03.114 Cellulitis of left upper limb; E44.0 Moderate protein-calorie malnutrition; I25.2 Old myocardial infarction; D75.839 Thrombocytosis, unspecified; E87.6 Hypokalemia; E88.09 Other disorders of plasma-protein metabolism, not elsewhere classified; Z20.822 Contact with and (suspected) exposure to COVID-19; Z79.82 Long term (current) use of aspirin; Z79.899 Other long term (current) drug therapy; Z87.891 Personal history of nicotine dependence; Z98.61 Coronary angioplasty status; I25.10 Atherosclerotic heart disease of native coronary artery without angina pectoris; I10 Essential (primary) hypertension; F31.9 Bipolar disorder, unspecified; J44.9 Chronic obstructive pulmonary disease, unspecified; D64.9 Anemia, unspecified; Z68.28 Body mass index [BMI] 28.0-28.9, adult; Z96.612 Presence of left artificial shoulder joint; Y83.8 Other surgical procedures as the cause of abnormal reaction of the patient, or of later complication, without mention of misadventure at the time of the procedure; Y92.009 Unspecified place in unspecified non-institutional (private) residence as the place of occurrence of the external cause
CPT/HCPCS: 36415; 71045; 73030; 73060; 83550; 83605; 83735; 84100; 84484; 85025; 85651; 85730; 86140; 86803; 87040; 87806; 93005; A4663; C1758; G0378; J1650; J2270; J2543; J2700; J3370; J3480; J7040; J7050

== ENCOUNTER 2022-12-10 19:00 | Emergency (ER) | payer BC, OTHER ==
[~2022-12-10] VITALS: Ht 170.2 cm; Wt 83.9 kg
[~2022-12-10 19:00] MED LIST changes: -CEFT2VIA14 IV; +HYDR-3972 PO; -VANC1.257 IV; +VANC1PLA9 IV
[2022-12-10] MEDS ORDERED: LIDOCAINE 5% PATCH TD ONE (19:45)
[2022-12-10] MEDS ORDERED: CYCLOBENZAPRINE HCL 10 MG TABLET ONE (19:46)
[2022-12-10] MEDS ORDERED: KETOROLAC TROMETHAMINE 30 MG INJ ONE (19:46)
[2022-12-10] MEDS ORDERED: ACETAMINOPHEN ES 500 MG TABLET ONE (19:46)
[2022-12-10] MEDS ORDERED: CYCL10TA9 PO (19:49)
[2022-12-10] MEDS: KETOROLAC TROMETHAMINE 30 MG INJ IM ONE (19:52)
[2022-12-10] MEDS: CYCLOBENZAPRINE HCL 10 MG TABLET PO ONE (19:53)
[2022-12-10] MEDS: ACETAMINOPHEN ES 500 MG TABLET PO ONE (19:53)
[2022-12-10] MEDS: LIDOCAINE 5% PATCH TD ONE (19:55)
--- NOTE | 2022-12-10 20:18 | NUR ---
Patient states pain is down from 8/10 from a 10. Requesting to be d/c'ed and will F/U with MRI that is schedule in 3 days by his PMD.
[2022-12-10 20:25] VITALS: BP 130/75
== END 2022-12-10 20:25 | disposition home or self-care (01) ==
LOC: ER 19:21
DX: M54.50 Low back pain, unspecified (principal); M62.838 Other muscle spasm; I25.2 Old myocardial infarction; K21.9 Gastro-esophageal reflux disease without esophagitis; Z79.899 Other long term (current) drug therapy; Z79.82 Long term (current) use of aspirin; Z79.2 Long term (current) use of antibiotics
CPT/HCPCS: 99284; 96372; J1885; A4663; A9150

== ENCOUNTER 2023-09-05 13:12 | Emergency (ER) | payer MEDICARE, OTHER ==
[~2023-09-05] VITALS: Ht 172.7 cm; Wt 68.0 kg
[~2023-09-05 13:12] MED LIST changes: +CYCL10TA9 PO; +FAMO-132 PO; +METO-295 PO
[2023-09-05 13:20] VITALS: O2SAT 98
[2023-09-05 14:32] LABS: BASOPHILS # (AUTO) 0.1 K/UL (0.0-0.2); BASOPHILS % (AUTO) 0.7 % (0.0-2.0); EOSINOPHILS % (AUTO) 0.4 % (0.0-7.0); HEMATOCRIT 45.3 % (36.7-47.1); HEMOGLOBIN 15.5 g/dL (12.5-16.3); LYMPHOCYTES # (AUTO) 2.3 K/uL (0.8-4.8); LYMPHOCYTES % (AUTO) 22.1 % (20.5-51.5); MEAN CORPUSCULAR HEMOGLOBIN 32.5 uug (23.8-33.4); MEAN CORPUSCULAR HGB CONC 34 g/dL (32.5-36.3); MEAN CORPUSCULAR VOLUME 95.2 fL (73.0-96.2); MONOCYTES # (AUTO) 0.7 K/uL (0.1-1.30); MONOCYTES % (AUTO) 6.7 % (0.0-11.0); NEUTROPHILS # (AUTO) 7.2 K/uL (1.8-8.9); NEUTROPHILS % (AUTO) 70.1 % (38.5-71.5); PLATELET COUNT (AUTO) 303 K/uL (152-348); RED BLOOD CELL COUNT(AUTO) 4.76 MIL/uL (4.06-5.63); RED CELL DISTRIBUTION WIDTH 15.1 % (12.1-16.2); WHITE BLOOD COUNT (AUTO) 10.3 K/uL (3.6-10.2)
[2023-09-05 14:51] LABS: DIFFERENTIAL COMMENT 1
[2023-09-05 14:52] LABS: CALCIUM 9.4 mg/dL (8.5-10.1); CREATININE 1.1 mg/dL (0.6-1.3); POTASSIUM 4.2 mmol/L (3.5-5.1)
[2023-09-05 14:57] LABS: ALBUMIN 3.8 g/dL (3.4-5.0); BILIRUBIN,TOTAL 0.5 mg/dL (0.2-1.0); TOTAL PROTEIN, SERUM 7.5 g/dL (6.4-8.2)
[2023-09-05 16:14] LABS: *BILIRUBIN,URIN NEGATIVE (NEGATIVE); *BLOOD, URINE 3+ (NEGATIVE); *CLARITY,URINE CLEAR (CLEAR); *COLOR,URINE YELLOW (YELLOW); *KETONES,URINE NEGATIVE (NEGATIVE); *PROTEIN,URINE 2+ (NEGATIVE); *UROBILINOGEN,URINE 0.2 E.U./dl (NORMAL); LEUKOCYTE ESTERASE ,URINE 1+ (NEGATIVE); NITRITE, URINE NEGATIVE (NEGATIVE); PH,URINE 6.5 (5.0-8.0); UGLUCOSE NEGATIVE (NEGATIVE)
[2023-09-05] MEDS ORDERED: CIPR-263 PO (17:18)
[2023-09-05 17:53] LABS: RBC,URINE 50-80 /HPF (0-3)
[2023-09-05 17:54] LABS: BACTERIA,URINE MODERATE /HPF (NONE SEEN); SQUAMOUS EPITHELIAL CELL,UR MODERATE /HPF (NONE SEEN)
== END 2023-09-05 17:42 | disposition home or self-care (01) ==
LOC: ER 13:12
DX: R31.9 Hematuria, unspecified (principal); K21.9 Gastro-esophageal reflux disease without esophagitis; F41.9 Anxiety disorder, unspecified; F32.A Depression, unspecified; Z79.82 Long term (current) use of aspirin; Z98.890 Other specified postprocedural states; Z79.899 Other long term (current) drug therapy
CPT/HCPCS: 36415; 83605; 83690; 85025; A4606; A4663

== ENCOUNTER 2023-11-19 18:22 | Emergency (ER) | payer MEDICARE, BC ==
[~2023-11-19] VITALS: Ht 167.6 cm; Wt 77.1 kg
[~2023-11-19 18:22] MED LIST changes: +CIPR-263 PO
[2023-11-19] MEDS ORDERED: ONDA-104 PO (18:41)
[2023-11-19] MEDS ORDERED: TAMS-3 PO (18:41)
[2023-11-19] MEDS ORDERED: HYDROMORPHONE 1 MG/1 ML DISP.SYRIN ONE ×3 (18:45→22:30)
[2023-11-19] MEDS ORDERED: ONDANSETRON 4 MG/2 ML VIAL ONE (18:45)
[2023-11-19] MEDS: IV NORMAL SALINE 1000 ML BAG IV ONE ×2 (18:51→21:15)
[2023-11-19] MEDS: HYDROMORPHONE 1 MG/1 ML DISP.SYRIN IV ONE ×3 (18:52→21:25)
[2023-11-19] MEDS: ONDANSETRON 4 MG/2 ML VIAL IV ONE (18:52)
[2023-11-19 18:53] LABS: BASOPHILS % (AUTO) 0.3 % (0.0-2.0); EOSINOPHILS % (AUTO) 0.1 % (0.0-7.0); HEMATOCRIT 48.3 % (36.7-47.1); HEMOGLOBIN 16.4 g/dL (12.5-16.3); LYMPHOCYTES # (AUTO) 0.7 K/uL (0.8-4.8); LYMPHOCYTES % (AUTO) 6.3 % (20.5-51.5); MEAN CORPUSCULAR HEMOGLOBIN 31.8 uug (23.8-33.4); MEAN CORPUSCULAR HGB CONC 34 g/dL (32.5-36.3); MEAN CORPUSCULAR VOLUME 93.6 fL (73.0-96.2); MONOCYTES # (AUTO) 0.4 K/uL (0.1-1.30); MONOCYTES % (AUTO) 3.6 % (0.0-11.0); NEUTROPHILS # (AUTO) 9.9 K/uL (1.8-8.9); NEUTROPHILS % (AUTO) 89.7 % (38.5-71.5); PLATELET COUNT (AUTO) 213 K/uL (152-348); RED BLOOD CELL COUNT(AUTO) 5.16 MIL/uL (4.06-5.63); RED CELL DISTRIBUTION WIDTH 14.6 % (12.1-16.2)
[2023-11-19 19:11] LABS: CALCIUM 10.1 mg/dL (8.5-10.1); CREATININE 1.3 mg/dL (0.6-1.3); POTASSIUM 3.8 mmol/L (3.5-5.1)
[2023-11-19 19:17] LABS: ALBUMIN 3.9 g/dL (3.4-5.0); BILIRUBIN,DIRECT 0.2 mg/dL (0.0-0.2); BILIRUBIN,TOTAL 0.6 mg/dL (0.2-1.0); TOTAL PROTEIN, SERUM 7.7 g/dL (6.4-8.2)
[2023-11-19 19:25] LABS: ETHANOL < 3 MG/DL (0-10)
[2023-11-19 19:28] LABS: *OCCULT BLOOD STOOL NEGATIVE (NEGATIVE)
[2023-11-19 22:43] VITALS: BP 111/64; TEMP 98.1; O2SAT 98
== END 2023-11-19 22:44 | disposition home or self-care (01) ==
LOC: ER 18:24
DX: R10.9 Unspecified abdominal pain (principal); G89.29 Other chronic pain; M54.9 Dorsalgia, unspecified; R51.9 Headache, unspecified; K21.9 Gastro-esophageal reflux disease without esophagitis; F41.9 Anxiety disorder, unspecified; F32.A Depression, unspecified; Z90.49 Acquired absence of other specified parts of digestive tract; Z79.82 Long term (current) use of aspirin; Z98.890 Other specified postprocedural states; Z79.899 Other long term (current) drug therapy
CPT/HCPCS: 80076; 80048; 82270; 83690; 85025; 36415; 70450; 74176; 99285; 96361; 96374; 96375; 96376; 80320; J2405; J1170 ×3; J7040 ×2; A4606; A4663; G0480

== ENCOUNTER 2024-07-06 14:35 | Emergency (ER) | payer MEDICARE, BC ==
[~2024-07-06] VITALS: Ht 175.3 cm; Wt 68.0 kg
[~2024-07-06 14:35] MED LIST changes: -CIPR-263 PO; -FAMO-132 PO; -GABA300C PO; -HYDR-3972 PO; -METO-295 PO; -OLAN2.5T27 PO; +ONDA-104 PO; -PANT40TA49 PO; +TAMS-3 PO; -VANC1PLA9 IV
[2024-07-06 15:26] LABS: BASOPHILS % (AUTO) 0.5 % (0.0-2.0); EOSINOPHILS % (AUTO) 0.5 % (0.0-7.0); HEMATOCRIT 26.6 % (36.7-47.1); HEMOGLOBIN 8.6 g/dL (12.5-16.3); LYMPHOCYTES # (AUTO) 1.4 K/uL (0.8-4.8); LYMPHOCYTES % (AUTO) 14.9 % (20.5-51.5); MEAN CORPUSCULAR HEMOGLOBIN 30.5 uug (23.8-33.4); MEAN CORPUSCULAR HGB CONC 32 g/dL (32.5-36.3); MEAN CORPUSCULAR VOLUME 94.4 fL (73.0-96.2); MONOCYTES # (AUTO) 0.8 K/uL (0.1-1.30); MONOCYTES % (AUTO) 8.1 % (0.0-11.0); NEUTROPHILS # (AUTO) 7.2 K/uL (1.8-8.9); PLATELET COUNT (AUTO) 324 K/uL (152-348); RED BLOOD CELL COUNT(AUTO) 2.82 MIL/uL (4.06-5.63); RED CELL DISTRIBUTION WIDTH 15.9 % (12.1-16.2); WHITE BLOOD COUNT (AUTO) 9.4 K/uL (3.6-10.2)
[2024-07-06 15:27] LABS: DIFFERENTIAL COMMENT 1
[2024-07-06 15:35] LABS: CALCIUM 8.5 mg/dL (8.5-10.1); CARBON DIOXIDE 24 mmol/L (21-32); CHLORIDE 109 mmol/L (98-107); CREATININE 1.1 mg/dL (0.6-1.3); GLUCOSE 108 mg/dL (74-106); POTASSIUM 3.9 mmol/L (3.5-5.1); SODIUM SERUM 143 mmol/L (136-145); UREA NITROGEN, BLOOD 16 mg/dL (7-18)
[2024-07-06] MEDS ORDERED: NEOMY/BACITRA/POLYMYXIN B OINT UD PACKET TP ONE (15:49)
[2024-07-06 15:56] LABS: ALANINE AMINOTRANSFERASE 18 U/L (16-63); ALBUMIN 2.7 g/dL (3.4-5.0); ALKALINE PHOSPHATASE 90 U/L (50-136); ASPARTATE AMINOTRANSFERASE 15 U/L (15-37); BILIRUBIN,DIRECT 0.1 mg/dL (0.0-0.2); BILIRUBIN,TOTAL 0.2 mg/dL (0.2-1.0); NT-PRO BNP 356 pg/mL (0-125); TOTAL PROTEIN, SERUM 6.1 g/dL (6.4-8.2)
[2024-07-06] MEDS: NEOMY/BACITRA/POLYMYXIN B OINT UD PACKET TP ONE (15:59)
[2024-07-06 16:44] VITALS: BP 106/68; TEMP 209.7; O2SAT 96
== END 2024-07-06 16:45 | disposition home or self-care (01) ==
LOC: ER 14:35
DX: S01.81XA Laceration without foreign body of other part of head, initial encounter (principal); S20.219A Contusion of unspecified front wall of thorax, initial encounter; F12.90 Cannabis use, unspecified, uncomplicated; F32.A Depression, unspecified; F41.9 Anxiety disorder, unspecified; K21.9 Gastro-esophageal reflux disease without esophagitis; F19.10 Other psychoactive substance abuse, uncomplicated; Z79.82 Long term (current) use of aspirin; Z79.899 Other long term (current) drug therapy; Z87.19 Personal history of other diseases of the digestive system; Z88.7 Allergy status to serum and vaccine; Z90.49 Acquired absence of other specified parts of digestive tract; W18.39XA Other fall on same level, initial encounter; Y93.89 Activity, other specified; Y92.89 Other specified places as the place of occurrence of the external cause; Y99.8 Other external cause status
CPT/HCPCS: 36415; 70450; 71045; 72125; 84484; 85025; 85730; A4606; A4663

== ENCOUNTER 2025-03-16 16:25 | Inpatient (IN) | payer BC, MEDICARE ==
[~2025-03-16] VITALS: Ht 175.3 cm; Wt 61.2 kg
[2025-03-16] MEDS ORDERED: METO50TA16 PO (17:16)
[2025-03-16] MEDS ORDERED: [UNRECOGNIZED DRUG - CODE] PO (17:16)
[2025-03-16] MEDS ORDERED: DIVA250T4 PO (17:16)
[2025-03-16] MEDS ORDERED: ISOS10TA2 (17:16)
[2025-03-16] MEDS ORDERED: CYCL5TAB PO (17:16)
[2025-03-16] MEDS ORDERED: CYAN500T9 PO (17:16)
[2025-03-16] MEDS ORDERED: CLON1TAB12 PO (17:16)
[2025-03-16] MEDS ORDERED: TAMS-3 PO (17:16)
[2025-03-16] MEDS ORDERED: BENZ2AMP3 PO (17:16)
[2025-03-16] MEDS ORDERED: LAMO200T10 PO (17:16)
[2025-03-16] MEDS ORDERED: GABA300C PO (17:16)
[2025-03-16] MEDS ORDERED: ALBU18HF2 IH (17:16)
[2025-03-16] MEDS ORDERED: CHOL200010 PO (17:16)
[2025-03-16] MEDS ORDERED: LEVE500T9 PO ×2 (17:16)
[2025-03-16] MEDS ORDERED: BENZ1TAB7 PO (17:16)
[2025-03-16] MEDS ORDERED: PREG50CA64 PO (17:16)
[2025-03-16] MEDS ORDERED: ISOS10TA2 PO (17:16)
[2025-03-16] MEDS ORDERED: ESCI20TA PO (17:16)
[2025-03-16] MEDS ORDERED: LORAZEPAM 0.5 MG TABLET PO PRN (19:45)
[2025-03-16] MEDS ORDERED: MAGNESIUM HYDROXIDE 30 ML LIQUID UDC PO PRN (19:45)
[2025-03-16] MEDS ORDERED: MAG HYDROX/AL HYDROX/SIMETH 30 ML LIQUID UDC PO PRN (19:45)
[2025-03-16] MEDS: BLOOD SUGAR DIAGNOSTIC 1 EACH STRIP VI ONE (20:41)
[2025-03-16] MEDS: TEMAZEPAM 7.5 MG CAPSULE PO PRN (20:42)
[2025-03-16] MEDS: LORAZEPAM 1 MG TABLET PO PRN (22:22)
[2025-03-17] MEDS ORDERED: PREG50CA PO (03:57)
[2025-03-17] MEDS ORDERED: PANT40TA49 PO (04:00)
[2025-03-17] MEDS ORDERED: NALO1DIS2 (04:04)
[2025-03-17 07:53] LABS: PLATELET COUNT (AUTO) 389 K/uL (152-348); RED BLOOD CELL COUNT(AUTO) 4.40 MIL/uL (4.06-5.63); RED CELL DISTRIBUTION WIDTH 16.8 % (12.1-16.2); WHITE BLOOD COUNT (AUTO) 5.9 K/uL (3.6-10.2)
[2025-03-17 08:10] VITALS: BP 129/76; TEMP 98.1; O2SAT 99
[2025-03-17 08:13] LABS: ASPARTATE AMINOTRANSFERASE 13.0 U/L (15-37); CREATININE 0.8 mg/dL (0.6-1.3); GLUCOSE FASTING 90.0 mg/dL (70-115); SODIUM SERUM 141.0 mmol/L (136-145); TOTAL PROTEIN, SERUM 7.2 g/dL (6.4-8.2); UREA NITROGEN, BLOOD 8.0 mg/dL (7-18)
[2025-03-17 08:15] LABS: IRON, SERUM 22 ug/dL (50-175)
[2025-03-17] MEDS ORDERED: ALEN70TA80 PO (10:29)
[2025-03-17] MEDS ORDERED: ALBUTEROL SULFATE 8 GM HFA.AER.AD IH PRN (11:15)
[2025-03-17] MEDS ORDERED: ALBUTEROL SULFATE 2.5 MG/ 0.5 ML NEBU NEB PRN (11:45)
[2025-03-17] MEDS: ASPIRIN 81 MG TAB.CHEW PO SCH (12:13)
[2025-03-17] MEDS: CYCLOBENZAPRINE HCL 10 MG TABLET PO PRN (12:13)
[2025-03-17] MEDS: PANTOPRAZOLE SODIUM 40 MG TABLET.DR PO SCH (12:13)
[2025-03-17] MEDS: METOPROLOL TARTRATE 50 MG TABLET PO SCH (12:14)
[2025-03-17] MEDS: PREGABALIN 50 MG CAPSULE PO SCH (12:14)
[2025-03-17] MEDS: ISOSORBIDE DINITRATE 10 MG TABLET PO SCH (12:20)
[2025-03-17] MEDS: GABAPENTIN 300 MG CAPSULE PO SCH (15:15)
[2025-03-17 16:00] VITALS: BP 100/68; TEMP 97.7; O2SAT 97
[2025-03-17] MEDS ORDERED: LORAZEPAM 1 MG TABLET PO PRN (16:15)
[2025-03-17 19:55] VITALS: BP 108/57; TEMP 98.1; O2SAT 98
[2025-03-17] MEDS: TAMSULOSIN HCL 0.4 MG CAP.SR.24H PO SCH (20:53)
[2025-03-17] MEDS: ATORVASTATIN 40 MG TABLET PO SCH (20:54)
[2025-03-17] MEDS: LAMOTRIGINE 200 MG TABLET PO SCH (20:54)
[2025-03-17 21:51] VITALS: BP 128/83; TEMP 98.3; O2SAT 93
[2025-03-18] MEDS: ACETAMINOPHEN 325 MG TABLET PO PRN (00:45)
[2025-03-18 08:04] VITALS: BP 99/65; TEMP 98; O2SAT 96
[2025-03-18 16:19] VITALS: BP 105/75; TEMP 98; O2SAT 96
[2025-03-18 19:50] VITALS: BP 130/81; TEMP 98.1; O2SAT 97
[2025-03-19 08:52] VITALS: BP 117/74; TEMP 98; O2SAT 94
[2025-03-19 15:29] VITALS: BP 126/83; TEMP 98; O2SAT 100
[2025-03-19 20:00] VITALS: BP 130/83; TEMP 98; O2SAT 99
[2025-03-19] MEDS: TEMAZEPAM 7.5 MG CAPSULE PO PRN (22:10)
[2025-03-20 09:05] VITALS: BP 91/58; TEMP 98; O2SAT 98
[2025-03-20 16:17] VITALS: BP 97/70; TEMP 98.2; O2SAT 99
[2025-03-20 20:00] VITALS: BP 124/66; TEMP 98.2; O2SAT 99
[2025-03-20 20:53] VITALS: BP 124/66
[2025-03-21] MEDS ORDERED: ALENDRONATE SODIUM 70 MG TABLET PO SCH (09:00)
== END 2025-03-21 06:04 | disposition short-term general hospital (02) | DRG 885 ==
LOC: ER 16:36 → GPS 18:07
PROVIDERS: ADMIT Psychiatry & Neurology Psychosomatic Medicine; ATTEND Nurse Practitioner Family
DX: F31.9 Bipolar disorder, unspecified (principal); E44.1 Mild protein-calorie malnutrition; Z91.148 Patient's other noncompliance with medication regimen for other reason; S06.5XAD Traumatic subdural hemorrhage with loss of consciousness status unknown, subsequent encounter; R40.2362 Coma scale, best motor response, obeys commands, at arrival to emergency department; R40.2142 Coma scale, eyes open, spontaneous, at arrival to emergency department; R40.2252 Coma scale, best verbal response, oriented, at arrival to emergency department; W19.XXXD Unspecified fall, subsequent encounter; S00.212 Abrasion of left eyelid and periocular area; N40.0 Benign prostatic hyperplasia without lower urinary tract symptoms; G89.4 Chronic pain syndrome; E78.5 Hyperlipidemia, unspecified; Z79.82 Long term (current) use of aspirin; Z79.899 Other long term (current) drug therapy; E88.09 Other disorders of plasma-protein metabolism, not elsewhere classified; G62.9 Polyneuropathy, unspecified; K21.9 Gastro-esophageal reflux disease without esophagitis; M81.0 Age-related osteoporosis without current pathological fracture; I10 Essential (primary) hypertension; J44.9 Chronic obstructive pulmonary disease, unspecified; I25.2 Old myocardial infarction; Z98.61 Coronary angioplasty status; Z96.612 Presence of left artificial shoulder joint; Z96.641 Presence of right artificial hip joint; Z86.711 Personal history of pulmonary embolism; Z91.81 History of falling
CPT/HCPCS: 36415; 70450; 83550; 83735; 84100; 84443; 85025; A4606; A4663; J8499

== ENCOUNTER 2025-03-21 05:58 | Inpatient (IN) | payer MEDICARE, BC ==
[~2025-03-21] VITALS: Ht 175.3 cm; Wt 61.2 kg
[2025-03-21 05:53] VITALS: BP 111/63; TEMP 98.5; O2SAT 98
[~2025-03-21 05:58] MED LIST changes: +ALBU18HF2 IH; +ALEN70TA80 PO; -CLON1TAB12 PO; -CYCL10TA9 PO; +CYCL5TAB PO; -ESCI-9 PO; +GABA300C PO; +ISOS10TA2 PO; -LAMO200T2 PO; +LEVE500T9 PO; -METO-357 PO; +METO50TA16 PO; -NITR0.4T SL; -ONDA-104 PO; +PANT40TA49 PO; +PREG50CA PO
[2025-03-21] MEDS ORDERED: MAGNESIUM HYDROXIDE 30 ML LIQUID UDC PO PRN (06:00)
[2025-03-21] MEDS ORDERED: ONDANSETRON 4 MG/2 ML VIAL IV PRN (06:00)
[2025-03-21] MEDS ORDERED: CYCLOBENZAPRINE HCL 10 MG PO PRN (06:15)
[2025-03-21] MEDS: PANTOPRAZOLE SODIUM 40 MG TABLET.DR PO SCH (07:26)
[2025-03-21 07:53] VITALS: BP 104/61; TEMP 98; O2SAT 97
[2025-03-21 08:04] LABS: PLATELET COUNT (AUTO) 313 K/uL (152-348); RED BLOOD CELL COUNT(AUTO) 4.07 MIL/uL (4.06-5.63); RED CELL DISTRIBUTION WIDTH 16.7 % (12.1-16.2); WHITE BLOOD COUNT (AUTO) 5.2 K/uL (3.6-10.2)
[2025-03-21 08:23] LABS: ASPARTATE AMINOTRANSFERASE 19.0 U/L (15-37); CREATININE 0.9 mg/dL (0.6-1.3); SODIUM SERUM 142.0 mmol/L (136-145); TOTAL PROTEIN, SERUM 6.5 g/dL (6.4-8.2); UREA NITROGEN, BLOOD 12.0 mg/dL (7-18)
[2025-03-21] MEDS: METOPROLOL TARTRATE 50 MG TABLET PO SCH (08:53)
[2025-03-21] MEDS: PREGABALIN 50 MG CAPSULE PO SCH (08:53)
[2025-03-21] MEDS: ISOSORBIDE DINITRATE 10 MG TABLET PO SCH (08:55)
[2025-03-21] MEDS: ACETAMINOPHEN 325 MG TABLET PO PRN (09:24)
[2025-03-21] MEDS ORDERED: LAMO200T10 PO (10:21)
[2025-03-21 11:32] VITALS: BP_SYST 101; BP_SYST 91; BP_SYST 96; BP_DIAS 54; BP_DIAS 57; BP_DIAS 60; TEMP 98.6; O2SAT 98
[2025-03-21 12:03] VITALS: BP 101/57; TEMP 98.6; O2SAT 98
[2025-03-21] MEDS: GABAPENTIN 300 MG CAPSULE PO SCH (14:26)
[2025-03-21 16:00] VITALS: BP 104/69; TEMP 98; O2SAT 99
[2025-03-21] MEDS: LACTULOSE 20 G/30 ML LIQUID UDC PO PRN (18:09)
[2025-03-21 19:10] VITALS: BP 100/68; TEMP 98.6; O2SAT 100
[2025-03-21] MEDS: TAMSULOSIN HCL 0.4 MG CAP.SR.24H PO SCH (20:23)
[2025-03-21] MEDS: ATORVASTATIN 40 MG TABLET PO SCH (20:23)
[2025-03-21] MEDS: LAMOTRIGINE 200 MG TABLET PO SCH (20:28)
[2025-03-22] MEDS ORDERED: HYDROCODONE/APAP 5-325MG TABLET PO PRN (01:00)
[2025-03-22 05:00] VITALS: BP 100/62; TEMP 97.7; O2SAT 99
[2025-03-22 07:11] LABS: PLATELET COUNT (AUTO) 283 K/uL (152-348); RED BLOOD CELL COUNT(AUTO) 4.54 MIL/uL (4.06-5.63); RED CELL DISTRIBUTION WIDTH 16.6 % (12.1-16.2); WHITE BLOOD COUNT (AUTO) 5.0 K/uL (3.6-10.2)
[2025-03-22 07:32] LABS: CREATININE 1.1 mg/dL (0.6-1.3); SODIUM SERUM 139.0 mmol/L (136-145); UREA NITROGEN, BLOOD 17.0 mg/dL (7-18)
[2025-03-22 11:30] VITALS: BP 92/59; TEMP 98.2; O2SAT 97
[2025-03-22 16:00] VITALS: BP 100/64; TEMP 98.4; O2SAT 98
[2025-03-22] MEDS: ENSURE ENLIVE (VAN) 240 ML LIQUID PO SCH (16:45)
[2025-03-22 19:15] VITALS: BP 105/64; TEMP 97.6; O2SAT 98
[2025-03-22] MEDS: CYCLOBENZAPRINE HCL 10 MG TABLET PO PRN (22:54)
[2025-03-23 03:07] LABS: HEPATITIS C VIRUS ANTIBODY Non Reactive (Non Reactive)
[2025-03-23 04:17] VITALS: BP 99/69; TEMP 98.1; O2SAT 98
[2025-03-23 11:33] VITALS: BP 93/66; TEMP 98.5; O2SAT 100
[2025-03-23 15:33] VITALS: BP 121/71; TEMP 98.2; O2SAT 99
[2025-03-23 20:00] VITALS: BP 110/71; TEMP 98; O2SAT 98
[2025-03-24 06:00] VITALS: BP 90/56; TEMP 97.7; O2SAT 97
[2025-03-24 06:49] LABS: PLATELET COUNT (AUTO) 275 K/uL (152-348); RED BLOOD CELL COUNT(AUTO) 4.38 MIL/uL (4.06-5.63); RED CELL DISTRIBUTION WIDTH 16.6 % (12.1-16.2); WHITE BLOOD COUNT (AUTO) 4.9 K/uL (3.6-10.2)
[2025-03-24 07:08] LABS: CREATININE 0.8 mg/dL (0.6-1.3); SODIUM SERUM 140.0 mmol/L (136-145); UREA NITROGEN, BLOOD 22.0 mg/dL (7-18)
[2025-03-24 12:00] VITALS: BP 101/65; TEMP 98.5; O2SAT 96
[2025-03-24 15:00] VITALS: BP_SYST 91; BP_SYST 92; BP_SYST 96; BP_DIAS 57; BP_DIAS 58; TEMP 97.7; O2SAT 96
[2025-03-24 16:00] VITALS: BP 92/57; TEMP 97.7; O2SAT 97
[2025-03-25 06:38] VITALS: BP 98/68; TEMP 98.3; O2SAT 95
[2025-03-25 12:00] VITALS: BP 129/69; TEMP 98.9; O2SAT 98
[2025-03-25] MEDS: LIDOCAINE 5% PATCH TD SCH (14:42)
[2025-03-25 16:00] VITALS: BP 112/52; TEMP 98.5; O2SAT 97
[2025-03-25] MEDS ORDERED: LIDOCAINE 5% PATCH TD SCH (16:30)
[2025-03-25] MEDS ORDERED: PANT40TA49 PO (17:47)
[2025-03-25] MEDS ORDERED: LAMO200T2 PO (17:47)
[2025-03-25] MEDS ORDERED: LIDO30AD10 TD (17:47)
[2025-03-25] MEDS ORDERED: ATOR40TA PO (17:47)
[2025-03-25] MEDS ORDERED: Lactose-Free Food PO (17:47)
[2025-03-28] MEDS ORDERED: ALENDRONATE SODIUM 70 MG TABLET PO SCH (06:00)
== END 2025-03-25 18:50 | disposition home health service (06) | DRG 83 ==
LOC: TELE3 05:58 → MEDSURG3 18:40
PROVIDERS: ATTEND Nurse Practitioner Family
DX: S06.5XAA Traumatic subdural hemorrhage with loss of consciousness status unknown, initial encounter (principal); E44.0 Moderate protein-calorie malnutrition; M48.56XA Collapsed vertebra, not elsewhere classified, lumbar region, initial encounter for fracture; M48.54XA Collapsed vertebra, not elsewhere classified, thoracic region, initial encounter for fracture; Y93.9 Activity, unspecified; Y92.89 Other specified places as the place of occurrence of the external cause; F31.9 Bipolar disorder, unspecified; S50.311A Abrasion of right elbow, initial encounter; W18.30XA Fall on same level, unspecified, initial encounter; Y92.239 Unspecified place in hospital as the place of occurrence of the external cause; N40.0 Benign prostatic hyperplasia without lower urinary tract symptoms; R29.6 Repeated falls; I10 Essential (primary) hypertension; G89.4 Chronic pain syndrome; G40.909 Epilepsy, unspecified, not intractable, without status epilepticus; E88.09 Other disorders of plasma-protein metabolism, not elsewhere classified; E78.5 Hyperlipidemia, unspecified; M81.0 Age-related osteoporosis without current pathological fracture; G62.9 Polyneuropathy, unspecified; Z48.817 Encounter for surgical aftercare following surgery on the skin and subcutaneous tissue; Z98.890 Other specified postprocedural states; Z79.82 Long term (current) use of aspirin; Z79.899 Other long term (current) drug therapy; K21.9 Gastro-esophageal reflux disease without esophagitis
CPT/HCPCS: 36415; 70450; 72072; 72100; 72131; 83921; 84443; 85025; 85610; 86803; 93307; 93880; A4663; A6209; G0378